=== PATIENT | female | born 1950 | race Caucasian/White ===

== ENCOUNTER → 2016-06-18 | Outpatient (CLI) | payer OTHER, BC ==
[~2016-06-18] MED LIST: ACET500C14; ASPI81TA28 PO; CARI350T27 PO; CLON0.5T3 PO; LISI5TAB PO; LORA10CA2 PO; MELO15TA4 PO; MELO7.5T5 PO; TAMO20TA47 PO; TRAM-10 PO; TRIATAB3 PO; VENL25TA2 PO
== END | disposition home or self-care (01) ==
LOC: C.LABSPEC 09:37
PROVIDERS: ATTEND Internal Medicine
DX: R19.4 Change in bowel habit (principal)

== ENCOUNTER → 2016-07-02 | Outpatient (CLI) | payer OTHER, BC ==
[~2016-07-02] MED LIST changes: -ACET500C14; -MELO7.5T5 PO; -VENL25TA2 PO
[2016-07-02 17:38] LABS: HEMATOCRIT 37.1 % (37-47); MEAN CORPUSCULAR HEMOGLOBIN 31.6 pg (25-34); PLATELET COUNT 259 K/uL (130-400); RED BLOOD COUNT 3.99 M/uL (4.2-5.4); WHITE BLOOD COUNT 7.93 K/uL (4.8-10.8)
[2016-07-02 18:12] LABS: ALT/SGPT 21 U/L (12-78); AST/SGOT 28 U/L (15-37); BLOOD UREA NITROGEN 26 mg/dl (7-18); CALCIUM 9.5 mg/dl (8.5-10.1); CARBON DIOXIDE 30 mmol/L (21-32); CHLORIDE 102 mmol/L (98-107); GLUCOSE 71 mg/dl (70-99); POTASSIUM 3.8 mmol/L (3.5-5.1); SODIUM 140 mmol/L (136-145)
[2016-07-02 18:15] LABS: ALB/GLOB RATIO 1.3 (0.9-2); ALKALINE PHOSPHATASE 46 U/L (45-117)
== END | disposition home or self-care (01) ==
LOC: C.LAB1850 16:04
PROVIDERS: ATTEND Obstetrics & Gynecology
DX: N95.0 Postmenopausal bleeding (principal)

== ENCOUNTER → 2016-07-05 | Day surgery (SDC) | payer OTHER, BC ==
[2016-06-26 08:49] VITALS: Ht 162.6 cm; Wt 59.1 kg
[~2016-07-05] VITALS: Ht 162.6 cm; Wt 59.1 kg
[~2016-07-05] MED LIST changes: +ARTIFICIAL TEARS OP OINT 3.5 GM TUBE ONE; +ATROPINE SULFATE 0.1 MG/ML 5ML SYR IV PRN; +DEXAMETHASONE SOD INJ 4 MG/ML VIAL ONE; +EpHEDrine SULFATE INJ 50 MG/ML AMP IV PRN; +FENTANYL CITRATE INJ 50 MCG/1 ML 2 ML VIAL IV PRN; +FENTANYL CITRATE INJ 50 MCG/1 ML 2 ML VIAL ONE; +IBUPROFEN 600 MG TAB PO PRN; +KETOROLAC TROMETHAMINE 30 MG/ML VIAL IV. PRN; +KETOROLAC TROMETHAMINE 30 MG/ML VIAL ONE; +LACTATED RINGER'S 1000ML 1,000 ML IV SCH; +LIDOCAINE HCL 2% 2 ML VIAL (20MG/ML) ONE; +MIDAZOLAM HCL 1 MG/ML 2ML VIAL ONE; +ONDANSETRON INJ 2 MG/ML 2 ML VIAL IV PRN; +ONDANSETRON INJ 2 MG/ML 2 ML VIAL ONE; +OXYCODONE/ACETAMINOPHEN 5-325 TAB PO PRN; +PROPOFOL IV EMULSION 10 MG/ML 20 ML VIAL IV ONE; +SODIUM CHLORIDE 0.9% 1000ML 1,000 ML IV SCH
--- NOTE | 2016-07-05 07:06 | History & Physical Bridge - SC ---
H&P Re-Evaluation Bridge Note: I have examined the patient, reviewed the History & Physical and in the interval since the performance of the History & Physical I have noted the following changes of clinical significance: No changes noted
--- NOTE | 2016-07-05 07:41 | [facility] Post Operative Brief Note ---
Immediate Operative Summary Operative Date Jul 05, 2016. Pre-Operative Diagnosis Post Menopausal Bleeding, Abnormal Pelvic Ultrasound, Use of tamoxifen Post-Operative Diagnosis 1. Same 2. Endometrial polyp Procedure(s) Performed Dilatation And Curettage, Hysteroscopy, Endometrial Polypectomy Surgeon Dr. Hull Trest[place] Surgeon(s) None Estimated Blood Loss 1 ML Findings uterus sounds to 7cm. nl ostia bilaterally. bland appearing cavity. ?small sessile polyp anteriorly after initial curettage. saline deficit 40cc. Fluids (cc crystalloids) 400 Specimens A. Endometrial Curettings Drains none Anesthesia general Complication(s) None Disposition Recovery Room / PACU
--- NOTE | 2016-07-05 07:42 | Discharge Instructions ---
Discharge Instructions Admission Reason for Admission: Post Menopausal Bleeding, Abnormal Pelvic Ultrasou Discharge Discharge Diagnosis / Problem: after surgery Discharge Goals Goal(s): Routine recovery after surgery Activity Recommendations Activity Limitations: as noted below . Instructions / Follow-Up Instructions / Follow-Up ACTIVITY RECOMMENDATIONS: * Avoid tampons, douching, hot tubs, pools, and intercourse until bleeding has stopped. * May shower as usual. * No strenuous activity for 24-48 hours. After 24-48 hours, you may do anything you feel like doing (driving and sports are okay). SPECIAL CARE INSTRUCTIONS: Special Diet: * Mild nausea may occur in the immediate post-operative period. * Take clear liquids such as tea, cola or bouillon until all nausea has subsided; you may then resume your normal diet. Special Care: * Light bleeding and vaginal spotting can last from a few days to 3-4 weeks. Call your doctor if bleeding becomes heavier than the heaviest part of your period. * Check your temperature twice a day for one week. If it goes above 100.4 degrees Fahrenheit (38.0 Celsius), notify your doctor. * Call your doctor's office for an appointment for 2 weeks after your surgery. FOLLOW-UP VISIT: Call your doctor's office for an appointment for 2 weeks after your surgery. Current Hospital Diet Patient's current hospital diet: Discharge Diet Recommended Diet: Regular Diet Procedures Procedures Performed: Dilatation And Curettage, Hysteroscopy, Endometrial Polypectomy Pending Studies Studies pending at discharge: yes List of pending studies: pathology of tissue Medical Emergencies . Who to Call and When: Medical Emergencies: If at any time you feel your situation is an emergency, please call 911 immediately. . Non-Emergent Contact Non-Emergency issues call your: Primary Care Provider, Printing Grey Cloth Tender Call Non-Emergent contact if: you have a fever . . "Provider Documentation" section prepared by Georgina Hull. VTE Core Measure Inpt VTE Proph given/why not?: Treatment not indicated
--- NOTE | 2016-07-05 07:56 | OPERATIVE REPORT ---
DATE OF OPERATION: 07/05/2016 PREOPERATIVE DIAGNOSES: 1. Postmenopausal bleeding. 2. Use of tamoxifen. 3. Abnormal pelvic ultrasound. POSTOPERATIVE DIAGNOSIS: 1. Same. 2. Small endometrial polyp. PROCEDURES: 1. Dilatation and curettage. 2. Hysteroscopy. 3. Endometrial polypectomy. SURGEON: Dr. Georgina Hull. INTERNET CONSULTANT: None. IV FLUIDS: 400 mL. ESTIMATED BLOOD LOSS: 1 mL. ANESTHESIA: General. FINDINGS: Uterine cavity quite bland appearing. Sounds to 8 cm. Normal tubal ostia bilaterally. After initial curettage small anterior more flat polyp suspected and resected. All tissue sent. Saline hysteroscopic fluid deficit 40 mL. INDICATIONS: A 66-year-old with an episode of postmenopausal bleeding and possible endometrial polyp on saline ultrasound. Office biopsy did not show any cancer or precancer. She does take tamoxifen for history of breast cancer. She desired surgical management. OPERATION AND FINDINGS: PROCEDURE: The patient taken the operating room and identified. After adequate general anesthesia was obtained, she was placed in dorsal lithotomy position and prepped and draped in usual sterile fashion. The bladder was drained for clear yellow urine. A weighted speculum and anterior retractor were used to visualize the cervix which was grasped its anterior lip with an Allis clamp. The cervix was sequentially dilated using Hegar dilators to 19. The diagnostic hysteroscope primed with saline medium was gently placed through the cervical os into the uterine cavity. The cavity was inspected with the findings as noted above. The uterus was sounded to 7 cm. The serrated curette was used to curettage the uterus to a gritty consistency. With reintroduction of the camera there was a suspicion for an anterior flat type of polyp. For this reason the polyp forceps was used to further biopsy that area and specimen. Complete removal was confirmed with the camera. At this point the procedure was terminated. The Allis clamp was removed. The hysteroscope was then removed. All the retractors were removed. The patient was returned to the supine position. She was awoken from anesthesia and transferred to recovery room in stable condition. All sponge, lap and needle counts were correct x2. I attest to the content of the Intraoperative Record and any orders documented therein. Any exceptions are noted below. NIRANJAN
[2016-07-05 08:20] VITALS: TEMP 37
--- NOTE | 2016-07-05 08:49 | Anesthesia Progress Nt - [facility] ---
Anesthesia Post Op Note Date & Time Jul 05, 2016 at 08:49 Vital Signs Pain Intensity: 1 Vital Signs Past 12 Hours Date Time Temp Pulse Resp B/P Pulse Ox O2 Delivery O2 Flow Rate FiO2 07/05/16 08:20 37.0 84 14 105/57 95 Room Air 07/05/16 08:09 83 17 96 07/05/16 08:09 36.4 82 17 07/05/16 08:08 119/75 07/05/16 08:04 75 15 07/05/16 08:04 75 15 98 07/05/16 08:03 118/78 07/05/16 07:59 75 16 07/05/16 07:59 75 16 100 07/05/16 07:58 112/69 07/05/16 07:54 80 17 100 07/05/16 07:54 79 17 07/05/16 07:53 111/63 07/05/16 07:49 83 24 07/05/16 07:49 82 24 112/64 99 07/05/16 07:45 37 86 16 112/77 95 Mask 6 07/05/16 07:44 85 07/05/16 07:44 85 112/77 98 07/05/16 07:04 90 126/86 07/05/16 06:31 36.9 101 16 99/63 96 Room Air Notes Mental Status: alert / awake / arousable, participated in evaluation Pt Amnestic to Procedure: Yes Nausea / Vomiting: adequately controlled Pain: adequately controlled Airway Patency, RR, SpO2: stable & adequate BP & HR: stable & adequate Hydration State: stable & adequate Anesthetic Complications: no major complications apparent
[2016-07-05 09:00] VITALS: BP 104/72; PULSE 84; O2SAT 96
== END | disposition home or self-care (01) ==
LOC: X.SURG 06:09
PROVIDERS: ATTEND Obstetrics & Gynecology
DX: N84.0 Polyp of corpus uteri (principal); N95.0 Postmenopausal bleeding; C50.919 Malignant neoplasm of unspecified site of unspecified female breast; K61.1 Rectal abscess; Z79.810 Long term (current) use of selective estrogen receptor modulators (SERMs); M19.90 Unspecified osteoarthritis, unspecified site; E78.5 Hyperlipidemia, unspecified; I10 Essential (primary) hypertension; Z98.890 Other specified postprocedural states

== ENCOUNTER → 2017-03-21 | Outpatient (CLI) | payer OTHER, BC ==
[~2017-03-21] MED LIST changes: -ARTIFICIAL TEARS OP OINT 3.5 GM TUBE ONE; -ATROPINE SULFATE 0.1 MG/ML 5ML SYR IV PRN; -DEXAMETHASONE SOD INJ 4 MG/ML VIAL ONE; -EpHEDrine SULFATE INJ 50 MG/ML AMP IV PRN; -FENTANYL CITRATE INJ 50 MCG/1 ML 2 ML VIAL IV PRN; -FENTANYL CITRATE INJ 50 MCG/1 ML 2 ML VIAL ONE; -IBUPROFEN 600 MG TAB PO PRN; -KETOROLAC TROMETHAMINE 30 MG/ML VIAL IV. PRN; -KETOROLAC TROMETHAMINE 30 MG/ML VIAL ONE; -LACTATED RINGER'S 1000ML 1,000 ML IV SCH; -LIDOCAINE HCL 2% 2 ML VIAL (20MG/ML) ONE; -MIDAZOLAM HCL 1 MG/ML 2ML VIAL ONE; -ONDANSETRON INJ 2 MG/ML 2 ML VIAL IV PRN; -ONDANSETRON INJ 2 MG/ML 2 ML VIAL ONE; -OXYCODONE/ACETAMINOPHEN 5-325 TAB PO PRN; -PROPOFOL IV EMULSION 10 MG/ML 20 ML VIAL IV ONE; +Potassium PO; -SODIUM CHLORIDE 0.9% 1000ML 1,000 ML IV SCH; -TAMO20TA47 PO; +TAMO20TA9 PO
[2017-03-21 13:16] VITALS: BP 99/58; PULSE 97; TEMP 36.9; O2SAT 96
--- NOTE | 2017-03-21 15:12 | Radiation Oncology Follow-Up ---
Radiation Oncology Follow-Up Date of Visit Mar 21, 2017. Reason For Visit Annual follow-up Radiation Completion Date 07/30/12 Diagnosis (1) MAL JOY BREAST UP-OUTER Status: Resolved Onset Date: 03/19/2012 Location: left breast Histology Subtype: ductal Stage: l Permanent Comment: Abnormal left breast mammogram Status post biopsy 03/19/2012 revealing invasive ductal carcinoma Status post lumpectomy and sentinel lymph node biopsy 04/29/2012 Stage [id number] Oncotype DX score of 16 status post completion of radiation therapy 07/30/2012 received 6080 cGy Last Edited By: Taylor Irizarry on Mar 09, 2015 15:57 History of Present Illness Mrs. Juarez is a 65-year-old now retired employee of [employer] who presented with abnormal mammogram in February of 2012. The patient had an ultrasound and diagnostic mammogram of the left breast which showed a 6 mm irregular density over the left upper outer quadrant. A biopsy of the breast on 03/19/2012 confirmed a grade 1 infiltrating ductal carcinoma of the left breast ER/VT positive with no lymphovascular invasion and ER/VT strongly positive. There was a concern about the HER-2/gali stain, but I do see a report on the chart with FISH reported as negative. An OncoDX test is ordered by Dr. Hull. The Oncotype DX score was 16. She return to our office to undergo radiation therapy. Interim History She's been doing well over this past year. She denies any changes to her breast. She is noted no masses or tenderness and no change in the axilla. She' s had no swelling of her arm. She is up-to-date on mammography. She is on tamoxifen. She had an episode of some mild spotting. She was seen by gynecology and had a D&C, hysteroscopy, and removal of polyps. She has not had any further spotting since the procedure. She continues on tamoxifen. She does have side effects of hot flashes and night sweats. She has significant osteoarthritis. She is on Mobic and this greatly helps her joint discomforts. She does notice some increased redness to the skin of the left upper breast and shoulder after showering. This resolves soon after she is back down. Allergies Coded Allergies: Meperidine (Verified Allergy, Unknown, COLD/CLAMMY AFTER IM INJECTION, ) Home Medications Scheduled Aspirin (Aspirin Ec), 81 MG PO HS Clonazepam (Klonopin), 0.5 MG PO HS Lisinopril (Prinivil), 5 MG PO HS Loratadine (Claritin), 10 MG PO QAM Meloxicam (Mobic), 15 MG PO QAM Tamoxifen (Nolvadex), 20 MG PO QAM Triamterene/Hctz (Triamterene/Hctz 37.5-25MG), 1 TAB PO QAM [Potassium], 99 MG PO DAILY Scheduled PRN Carisoprodol (Soma), 350 MG PO HS PRN Tramadol (Ultram), 50 MG PO Q4H PRN for Pain Review of Systems Gastrointestinal: Symptoms: WNL Oral: Symptoms: No Problems Respiratory: Symptoms: WNL Urinary: Symptoms: WNL Skin: Symptoms: No Problems Other Skin Symptoms: Patient reports slightly reddened at tx site and itchy at site Breast: Right Upper Arm Measurement: 25.9 Right Mid Arm Measurement: 20.1 Right Wrist Measurement: 15.1 Left Upper Arm Measurement: 25.7 Left Mid Arm Measurement: 19.3 Left Wrist Measurement: 15.5 Physical Exam Vital Signs Date Time Temp Pulse Resp B/P (MAP) Pulse Ox O2 Delivery O2 Flow Rate FiO2 03/21/17 13:16 36.9 97 16 99/58 96 Fatigue: None General Appearance: no apparent distress Eyes: normal inspection, EOMI ENT: normal ENT inspection, hearing grossly normal Neck: supple, no adenopathy, thyroid normal Respiratory/Chest: lungs clear, no respiratory distress, no accessory muscle use Breast: Breast examination reveals well-healed incisions of the left breast. There are no masses or tenderness and no axillary adenopathy. She has no skin retractions or nipple changes. Using the [place] score cosmesis she has a excellent outcome. The right breast showed no masses or tenderness no axillary adenopathy. Cardiovascular: regular rate, rhythm, no gallop, no murmur Abdomen: non tender, soft, no organomegaly Extremities: no pedal edema, + pertinent finding (joint nodules noted of the hands) Neurologic/Psychiatric: no motor/sensory deficits, alert, normal mood/affect Skin: warm/dry Additional Studies Patient: TIMOTHY JUAREZ [facility] Rec: [id number] Address[address]: [address] Address2: Acct ID: [id number] Date: 1950 Sex: F Ref Phy: Att Phy: Kendra Carmichael M.D. Rachel Phy: Prem Hull M.D. Inter Phy: Nubia Chavarria MD [facility] Zip: [place] [address] SC: [email or web address] Report #: [id number] Knowledge Manager: STEWST Diagnosis: ASYMPTOMATIC, HX BREAST CA Service Date: 03/30/16 MNE: [id number] Ordering Dr: Kendra Carmichael M.D. CC: Kendra Carmichael M.D. CONF: DICTATED BY: Nubia Chavarria MD MAMMOGRAPHY REPORT BILATERAL DIGITAL SCREENING MAMMOGRAM TOMOSYNTHESIS WITH CAD: 03/30/2016 CLINICAL HISTORY: Routine screening. Patient has no complaints. Comparison is made to exams dated: 03/28/2015 mammogram, 03/23/2013 mammogram, 03/25/2014 mammogram, 04/29/2012 specimen, 03/01/2011 mammogram, and 02/28/2010 mammogram - [facility]. FINDINGS: Breast composition: The tissue of both breasts is heterogeneously dense, which may obscure small masses. Breast tomosynthesis, in addition to standard 2D mammography was performed. Current study was also evaluated with a Computer Aided Detection (CAD) system. There is expected architectural distortion with associated surgical clips and coarse dystrophic calcifications in the upper outer posterior left breast, at the site of prior lumpectomy. No new suspicious mass, architectural distortion or cluster of microcalcifications is seen bilaterally. IMPRESSION: ACR BI-RADS CATEGORY 2: BENIGN Stable bilateral mammograms, without mammographic evidence of malignancy. A 1 year screening mammogram is recommended. The patient will receive written notification of the results. Approximately 10% of breast cancers are not detected with mammography. A negative mammographic report should not delay biopsy if a clinically suggestive mass is present. Nubia Chavarria M.D. ay/:03/30/2016 14:56:47 Neurosurgery Physician: Angie RAYA)(Nelsy), [facility] letter sent: Normal 1/2 BI-RADS Code: ACR BI-RADS Category 2: Benign Dictated by: Nubia Chavarria MD Signed by: Nubia Chavarria MD Assessment & Plan Plan: She has a recheck mammogram scheduled for 04/01/2017. She continues on tamoxifen. Continue follow-up with her primary care provider and medical oncologist. Today we discussed smoke cessation. She continues to smoke less than one pack per day. She stated that she would like to try 10 text but this was not recommended while on tamoxifen. She will be completing her tamoxifen in July. I gave her information about the 1 800 quit program. She may qualify for the screening CTs for smokers. She agreed to have her name given to our talent program manager. I will have her discussed this with Dr. Estrada. A follow-up appointment with our office was not given. She may call if she has any questions or concerns in the interim. She'll continue follow-up with gynecology. I did suggest discussing recheck ultrasounds due to the recent finding of uterine polyps. She will discuss that with the outside plant cable engineer. Total Time In Follow-Up I spent 20 minutes speaking to the patient performing examination. I spent 15 minutes reviewing information in completing this note. Copy To Juan Clarke M.D.; Prem Hull M.D.
== END | disposition home or self-care (01) ==
LOC: C.ONC 13:04
PROVIDERS: ATTEND Physician Assistant Medical
DX: Z08 Encounter for follow-up examination after completed treatment for malignant neoplasm (principal); Z92.3 Personal history of irradiation; Z85.3 Personal history of malignant neoplasm of breast

== ENCOUNTER → 2017-04-01 | Outpatient (CLI) | payer OTHER, BC ==
[~2017-04-01] MED LIST changes: +TAMO20TA47 PO; -TAMO20TA9 PO
--- NOTE | 2017-04-02 15:17 | MAMMOGRAPHY REPORT ---
BILATERAL DIGITAL SCREENING MAMMOGRAM TOMOSYNTHESIS WITH CAD: 04/01/2017 CLINICAL HISTORY: Asymptomatic. Personal history of breast cancer. TECHNIQUE: Breast tomosynthesis in addition to standard 2D mammography was performed. Current study was also evaluated with a Computer Aided Detection (CAD) system. COMPARISON: Comparison is made to exams dated: 03/30/2016 mammogram, 03/28/2015 mammogram, 4 mammogram, 03/23/2013 mammogram, 10/27/2012 mammogram, and 03/03/2012 mammogram - [facility]. BREAST COMPOSITION: The tissue of both breasts is heterogeneously dense, which may obscure small mas ses. FINDINGS: There is expected architectural distortion with benign appearing calcification and surgical clips in the upper outer posterior left breast, at the site of prior lumpectomy. Stable asymmetry i n the medial posterior right breast. No new suspicious mass, architectural distortion or cluster of microcalcifications is seen. IMPRESSION: ACR BI-RADS CATEGORY 1: NEGATIVE There is no mammographic evidence of malignancy. A 1 year screening mammogram is recommended. The pa tient will receive written notification of the results. Approximately 10% of breast cancers are not detected with mammography. A negative mammographic report should not delay biopsy if a clinically suggestive mass is present. Nubia Chavarria M.D. ay/:04/01/2017 16:54:26 Grey Stock Recorder: Rc COPELAND(R)(M), [facility] letter sent: Normal 1/2 BI-RADS Code: ACR BI-RADS Category 1: Negative
== END | disposition home or self-care (01) ==
LOC: C.MAMM 09:19
PROVIDERS: ATTEND Obstetrics & Gynecology
DX: Z12.31 Encounter for screening mammogram for malignant neoplasm of breast (principal); Z85.3 Personal history of malignant neoplasm of breast

== ENCOUNTER → 2017-04-19 | Outpatient (CLI) | payer OTHER, BC ==
[~2017-04-19] MED LIST changes: -TAMO20TA47 PO; +TAMO20TA9 PO
--- NOTE | 2017-04-19 09:52 | DIAGNOSTIC IMAGING REPORT ---
CT LUNG SCREENING, LOW DOSE WITH COMPUTER-AIDED DETECTION (CAD) CLINICAL HISTORY: Smoking history. COMPARISON STUDY: No previous studies for comparison. CT DOSE: 73.66 mGycm TECHNIQUE: Low-dose helical CT was acquired without intravenous contrast from lung apices to bases and reconstructed at 2.5 mm every 2 mm. CAD was utilized for this study. A dose lowering technique was utilized adhering to the principles of ALARA. FINDINGS: Mild biapical pleural-parenchymal scarring. The central airways are patent. No pleural effusions. No pneumothorax. Mild emphysema. No suspicious lytic or blastic osseous lesions. No mediastinal or hilar lymphadenopathy. Mild calcification within the coronary arteries and thoracic aorta. The heart is normal in size. The visualized liver, spleen, and adrenal glands are unremarkable. Surgical clips within the left breast. Small fat-containing left-sided Bochdalek hernia. IMPRESSION: No suspicious pulmonary nodules identified. Mild coronary artery calcifications. CAD FINDINGS: Overall Lung RADS Category: 1 Lung RADS Management Recommendation: Continue annual lung cancer screening. Lung RADS Follow Up Date: 2018-04-19 Lung RADS Nodule ID: Electronically signed by: Marcello Mcdonald M.D. 04/19/2017 9:50 AM Dictated Date/Time: 04/19/2017 9:43 AM
== END | disposition home or self-care (01) ==
LOC: C.CTS 09:22
PROVIDERS: ATTEND Internal Medicine
DX: Z87.891 Personal history of nicotine dependence (principal)

== ENCOUNTER → 2017-07-04 | Outpatient (CLI) | payer OTHER, BC ==
[2017-07-04 15:32] LABS: FECAL OCCULT BLOOD #1 NEGATIVE (NEGATIVE); FECAL OCCULT BLOOD #2 NEGATIVE (NEGATIVE); FECAL OCCULT BLOOD #3 NEGATIVE (NEGATIVE)
== END | disposition home or self-care (01) ==
LOC: C.LABSPEC 14:53
PROVIDERS: ATTEND Internal Medicine
DX: Z12.11 Encounter for screening for malignant neoplasm of colon (principal)

== ENCOUNTER → 2017-07-05 | Outpatient (CLI) | payer OTHER, BC ==
[2017-07-05 10:09] LABS: BASO % 0.3 %; BASO ABS # 0.03 K/uL (0-0.2); EOS % 3.7 %; EOS ABS # 0.32 K/uL (0-0.5); HEMATOCRIT 40.3 % (37-47); HEMOGLOBIN 13.6 g/dL (12.0-16.0); IG# 0.02 K/uL (0.00-0.02); LYMPH % 26.8 %; LYMPH ABS # 2.32 K/uL (1.2-3.4); MEAN CELL VOLUME 95.3 fL (80-100); MEAN CORPUSCULAR HEMOGLOBIN 32.2 pg (25-34); MEAN CORPUSCULAR HGB CONC 33.7 g/dl (32-36); MEAN PLATELET VOLUME 9.9 fL (7.4-10.4); MONO % 3.3 %; MONO ABS # 0.29 K/uL (0.11-0.59); NEUT % 65.7 %; NEUT ABS # 5.68 K/uL (1.4-6.5); PLATELET COUNT 297 K/uL (130-400); RED CELL DISTRIBUTION WIDTH CV 13.9 % (11.5-14.5); RED CELL DISTRIBUTION WIDTH SD 48.9 fL (36.4-46.3); WHITE BLOOD COUNT 8.66 K/uL (4.8-10.8)
[2017-07-05 10:21] LABS: ALBUMIN 3.8 gm/dl (3.4-5.0); ALT/SGPT 19 U/L (12-78); AST/SGOT 26 U/L (15-37); BLOOD UREA NITROGEN 22 mg/dl (7-18); CALCIUM 9.9 mg/dl (8.5-10.1); CARBON DIOXIDE 27 mmol/L (21-32); CHOLESTEROL 210 mg/dl (0-200); CREATININE 1.09 mg/dl (0.60-1.20); GLUCOSE 92 mg/dl (70-99); POTASSIUM 4.3 mmol/L (3.5-5.1); SODIUM 137 mmol/L (136-145)
[2017-07-05 10:25] LABS: ALKALINE PHOSPHATASE 56 U/L (45-117); LDL CHOLESTEROL (DIRECT) 138 mg/dl; TOTAL PROTEIN 7.1 gm/dl (6.4-8.2)
== END | disposition home or self-care (01) ==
LOC: C.LAB 07:17
PROVIDERS: ATTEND Internal Medicine
DX: Z00.01 Encounter for general adult medical examination with abnormal findings (principal); Z11.4 Encounter for screening for human immunodeficiency virus [HIV]; I10 Essential (primary) hypertension; E78.5 Hyperlipidemia, unspecified; M85.80 Other specified disorders of bone density and structure, unspecified site

== ENCOUNTER 2019-03-25 05:25 | Inpatient (IN) ==
--- NOTE | 2019-02-24 09:50 | PAT Medication Instructions ---
Medication Instructions Date of Service February 24, 2019 Home Medications aspirin [Aspir-81] 81 mg PO QPM atorvastatin [Lipitor] 10 mg PO QAM bupropion HCl [Wellbutrin SR] 150 mg PO BID cholecalciferol (vitamin D3) [Vitamin D3] 5,000 unit PO DAILY clonazepam 0.5 mg PO QPM lisinopril 5 mg PO QPM loratadine [Claritin] 10 mg PO QAM meloxicam 15 mg PO QAM potassium 99 mg PO BID triamterene-hydrochlorothiazid 1 tab PO QAM ASK your surgeon for instructions meloxicam 15 mg PO QAM DO NOT take the morning of surgery loratadine [Claritin] 10 mg PO QAM potassium 99 mg PO BID triamterene-hydrochlorothiazid 1 tab PO QAM Take morning of surgery With a small sip of water, OTHERWISE NOTHING TO EAT OR DRINK AFTER MIDNIGHT: atorvastatin [Lipitor] 10 mg PO QAM bupropion HCl [Wellbutrin SR] 150 mg PO BID Take evening before surgery aspirin [Aspir-81] 81 mg PO QPM bupropion HCl [Wellbutrin SR] 150 mg PO BID clonazepam 0.5 mg PO QPM lisinopril 5 mg PO QPM potassium 99 mg PO BID Other Notes If you have any questions please call us at [phone] or [phone] or [phone] or [phone]
--- NOTE | 2019-02-24 12:43 | Anesthesiology Consultation ---
Date of Service February 24, 2019 Assessment & Plan (1) Encounter for pre-operative examination: - Awaiting review preop testing. - Awaiting surgeon-ordered PCP clearance scheduled 02/24 (Dr. Antonietta Melo). - LUE limb restriction: s/p left breast lumpectomy + LND - ASA: okay to continue perioperatively per surgeon. - Hx scoliosis, L4-L5 discectomy: patient concerned RE: SAB. Discussed that anesthesia would do best to attempt spinal block with least attempts as possible. If issues with SAB, GA would be alternative type of anesthesia. Patient voiced understanding. Chart Review Chart Review: Patient seen in Pre Admission Testing Teaching & Discussion Pre-Anesthesia Teaching/Discussion Notes: Instructed NPO after midnight before surgery,except medications with 15 cc of water. Medication instructions provided according to the PAT guidelines. History Surgery Operation Date: 03/25/19 12:40 Proposed Procedures p Right Total Knee Arthroplasty - Farrukh Shaffer MD Height/Weight Height: 5 ft 2 in Weight: 57.6 kg Allergies Allergy/AdvReac Type Severity Reaction Status Date / Time meperidine AdvReac Unknown cold/clammy Verified 02/24/19 12:50 feeting after IM injection Medications Home Medications Medication Instructions Recorded Confirmed Last Taken aspirin [Aspir-81] 81 mg PO QPM 02/19/19 02/19/19 02/18/19 atorvastatin [Lipitor] 10 mg PO QAM 02/19/19 02/19/19 02/19/19 bupropion HCl [Wellbutrin SR] 150 mg PO BID 02/19/19 02/19/19 02/19/19 cholecalciferol (vitamin D3) 5,000 unit PO DAILY 02/19/19 02/19/19 Unknown [Vitamin D3] clonazepam 0.5 mg PO QPM 02/19/19 02/19/19 Unknown lisinopril 5 mg PO QPM 02/19/19 02/19/19 02/18/19 loratadine [Claritin] 10 mg PO QAM 02/19/19 02/19/19 02/19/19 meloxicam 15 mg PO QAM 02/19/19 02/19/19 02/19/19 potassium 99 mg PO BID 02/19/19 02/19/19 02/19/19 triamterene-hydrochlorothiazid 1 tab PO QAM 02/19/19 02/19/19 02/19/19 Past Medical History Medical History Degenerative disc disease History of depression History of left breast cancer s/p left breast lumpectomy + LND/XRT Hyperlipidemia Hypertension IBS (irritable bowel syndrome) diet controlled Restless leg syndrome Sciatica Scoliosis Exercise / Class Metabolic Activity II 4-5 Yardwork/Stairs/Walk up hill Past Surgical History Surgical History History of appendectomy History of colonoscopy History of dilation and curettage History of lumbar discectomy X2 History of lumpectomy of left breast + AXILLARY LND History of repair of rotator cuff ARTHROSCOPY - R X2, L X 1 History of surgery FOR RECTAL ABCESS History of wisdom tooth extraction Hx of laparoscopy LAPAROSCOPIC RIGHT SALPINGECTOMY Past Anesthesia History No Hx of Anesthesia Complications and No Family Hx of Anesthesia Complications History of PONV No Hx of PONV and No Hx of Motion Sickness Social History Smoking Status: Former smoker tobacco type: cigarettes Do You Dip or Chew Tobacco: No Smoking End Date: QUIT JAN 2019; HX < 1PPD X 30 INTERMITTENT YEARS Hx Alcohol Use: Yes alcohol intake frequency: other Alcohol Intake Frequency Comment: ONCE/MONTH Hx Substance Use: No substance use type: does not use Review of Systems Patient denies chest pain, shortness of breath, dyspnea on exertion, reflux, cough, wheezing, palpitations. Physical Exam Vital Signs VITALS BP 110/72 P 80 TEMP 98.1 SP02 95%RA RESP 16 PHYSICAL Full neck and c-spine range of motion. Full TMJ range of motion. 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
--- NOTE | 2019-02-24 14:23 | XRay Report ---
XR chest Pre-admission PA/Lat CLINICAL HISTORY: Preoperative evaluation. COMPARISON STUDY: Chest CT April 29, 2018. FINDINGS: Lung volumes are normal. There is no pneumothorax or pleural effusion. There is mild right asymmetric apical opacity. Cardiac size is normal. Mediastinal contours are normal. Left breast surgi antwan clips are noted. IMPRESSION: Mild asymmetric right apical opacity. This is likely due to summation artifact or scarri ng. However, a follow-up chest CT is recommended to exclude a pulmonary nodule. Electronically signed by: Jim Daniels M.D. 02/24/2019 2:21 PM
[2019-02-24 14:47] LABS: Basophils # (auto) 0.01 K/uL (0-0.2); Basophils % (auto) 0.2 %; Eosinophils # (auto) 0.17 K/uL (0-0.5); Eosinophils % (auto) 2.6 %; Hematocrit (blood only) 35.6 % (37-47); Hemoglobin 12.4 g/dL (12.0-16.0); Immature Granulocytes # (auto) 0.02 K/uL (0.00-0.02); Immature Granulocytes % (auto) 0.3 %; Lymphocytes # (auto) 1.85 K/uL (1.2-3.4); Mean Corpuscular Hemoglobin 30.9 pg (25-34); Mean Corpuscular Hgb Conc 34.8 g/dL (32-36); Mean Corpuscular Volume 88.8 fL (80-100); Mean Platelet Volume 9.3 fL (7.4-10.4); Monocytes # (auto) 0.33 K/uL (0.11-0.59); Neutrophils # (auto) 4.23 K/uL (1.4-6.5); Neutrophils % (auto) 63.9 %; Platelet Count 303 K/uL (130-400); RDW Coefficient of Variation 13.2 % (11.5-14.5); RDW Standard Deviation 42.8 fL (36.4-46.3); Red Blood Count 4.01 M/uL (4.2-5.4); White Blood Count 6.61 K/uL (4.8-10.8)
[2019-02-24 14:55] LABS: Appearance Urine Clear (Clear); Bacteria Urine Automated Negative (Negative); Bilirubin Urine Negative (Negative); Blood Urine Negative (Negative); Cast Urine Automated 0 /lpf (0-5); Color Urine Yellow; Epithelial Cell Urine Auto 20-30 /lpf (0-5); Glucose Urine UA Negative (Negative); Ketones Urine Negative (Negative); Leukocyte Esterase Urine 2+ (Negative); Nitrite Urine Negative (Negative); Protein Urine Negative (Negative); RBC Urine Automated 0-4 /hpf (0-4); Specific Gravity Urine 1.017 (1.000-1.030); Urobilinogen Urine Negative (Negative); pH Urine 6.5 (4.5-7.5)
[2019-02-24 14:59] LABS: Albumin Level 3.9 gm/dl (3.4-5.0); BUN Creatinine Ratio 14.5 (10-20); Calcium 10.2 mg/dl (8.5-10.1); Creatinine Clr Calc Pharmacy 28.6 ml/min; Est GFR (African American) 40.7; Est GFR (Non-African American) 35.1
[2019-02-24 15:01] LABS: Partial Thromboplastin Time 26.4 Seconds (21.0-31.0); Prothrombin Time 9.8 Seconds (9.0-12.0)
[2019-02-25 05:51] LABS: Estimated Average Glucose 114 mg/dl; Hemoglobin A1C 5.6 % (4.5-5.6)
--- NOTE | 2019-03-24 20:52 | History and Physical Report ---
DATE OF ADMISSION: 03/25/2019 CHIEF COMPLAINT: Chronic right knee pain. HISTORY OF PRESENT ILLNESS: This is a 68-year-old female patient of Dr. Shaffer'hilda complaining of chronic right knee pain, longstanding, now progressively getting worse. The patient has failed conservative treatment including intra-articular injections, anti-inflammatories and physical therapy. The patient has increased pain with weightbearing activities and her pain does interfere with her activities of daily living. The patient has been diagnosed with end-stage osteoarthritis per clinical and radiographic exams and wishes to proceed with a right total knee arthroplasty. PAST MEDICAL HISTORY: Hypertension, hypercholesterolemia, anxiety, osteoarthritis, spine problems, neck problems, sciatica, breast cancer. SOCIAL HISTORY: Nonsmoker, nondrinker. PAST SURGICAL HISTORY: Appendectomy, oophorectomy, lumbar spine surgery, left breast lumpectomy with axilla node removal, right rotator cuff surgery x2 and left shoulder surgery and D and C. FAMILY HISTORY: Noncontributory. REVIEW OF SYSTEMS: Right knee chronic pain. Otherwise, denies any shortness of breath, chest pain, nausea, vomiting or any other joint complaints. MEDICATIONS: 1. Prinivil 5 mg daily. 2. Claritin 10 mg daily. 3. Tramadol 50 mg as needed. 4. Mobic 15 mg daily. 5. Triamterene/hydrochlorothiazide 37.5/25 daily. 6. Potassium 99 mg 2 tablets daily. 7. Vitamin D3 daily. 8. Aspirin 81 mg daily. 9. Clonazepam 0.5 mg 2 tablets as needed daily. 10. Soma 350 daily as needed. 11. Atorvastatin 10 mg daily. 12. Wellbutrin 150 twice daily. ALLERGIES: DEMEROL WHICH CAUSES DIZZINESS. PHYSICAL EXAMINATION: GENERAL: Well-developed, well-nourished 68-year-old female in no acute distress. She is alert and oriented x3 and pleasant. HEENT: Normocephalic, atraumatic. Extraocular motions are intact. Pupils are equal and reactive to light. HEART: Regular rate and rhythm, no murmurs appreciated. LUNGS: Clear. ABDOMEN: Soft, nontender, bowel sounds present. EXTREMITIES: Right knee range of motion of 0-125 with an effusion. She has a varus deformity with medial joint line tenderness. She has 5/5 strength. NEUROLOGIC: Neurovascularly, she is intact in her right lower extremity. DIAGNOSES: Right knee end-stage osteoarthritis, hypertension, hypercholesterolemia, anxiety, osteoarthritis, spine problems, neck problems, sciatica, history of breast cancer. PLAN: The patient was advised of her diagnoses. Indications, risks, benefits, postop course have all been reviewed. The patient wished to proceed with a right total knee arthroplasty. Necessary consent forms, preoperative testing and clearances will be obtained.
[2019-03-25] MEDS ORDERED: ACETAMINOPHEN 500 MG TAB PO SCH (06:00)
[2019-03-25] MEDS ORDERED: CeleBREX 200 MG CAP PO SCH (06:00)
[2019-03-25] MEDS ORDERED: GABAPENTIN 300 MG CAP PO SCH (06:00)
[2019-03-25] MEDS ORDERED: FAMOTIDINE 20 MG TAB PO SCH (06:00)
[2019-03-25] MEDS ORDERED: CEFAZOLIN 1000MG 1,000 MG/7.5 ML SYR IV SCH (06:00)
[2019-03-25] MEDS ORDERED: dexAMETHasone 4 MG TAB PO SCH (06:00)
[2019-03-25] MEDS ORDERED: TRANEXAMIC ACID 1,000 MG **IV Pre-op IV SCH (06:00)
[2019-03-25] MEDS ORDERED: METOCLOPRAMIDE HCL 10 MG TABLET PO SCH (06:00)
[2019-03-25] MEDS ORDERED: ROPIVACAINE 0.5% HCL/PF 150 MG, BUPIVACAINE 0.5% MPF 30 ML, EPINEPHrine 30MG/30ML (OR U... INSTIL SCH (06:00)
[2019-03-25] MEDS ORDERED: DEXAMETHASONE SOD INJ 4 MG/ML VIAL ONE (06:25)
[2019-03-25] MEDS ORDERED: BUPIVACAINE/EPINEPHRINE 0.25% 1:200,000 30 ML VIAL ONE (06:25)
[2019-03-25] MEDS ORDERED: BUPIVACAINE 0.5 % 5 MG/1 ML PF 10ML VIAL ONE (06:25)
[2019-03-25] MEDS ORDERED: MIDAZOLAM HCL 1 MG/ML 2ML VIAL ONE ×2 (06:29)
[2019-03-25] MEDS ORDERED: TRANEXAMIC ACID 1,000 MG **IV Intra-op IV SCH (06:30)
[2019-03-25] MEDS ORDERED: fentaNYL citrate 100 MCG/2 ML VIAL ONE (06:30)
[2019-03-25] MEDS ORDERED: BACITRACIN INJ 50,000 UNIT VIAL ONE (06:58)
[2019-03-25] MEDS ORDERED: ORTHO JOINT ANESTHETIC ONE (06:58)
[2019-03-25] MEDS ORDERED: ONDANSETRON INJ 2 MG/ML 2 ML VIAL IV PRN ×2 (07:09→10:42)
[2019-03-25] MEDS ORDERED: ATROPINE SULFATE 0.1 MG/ML 10ML SYR IV PRN (07:09)
[2019-03-25] MEDS ORDERED: fentaNYL citrate 100 MCG/2 ML VIAL IV PRN (07:09)
[2019-03-25] MEDS ORDERED: ePHEDrine sulfate 50 MG/ML AMP IV PRN (07:09)
--- NOTE | 2019-03-25 07:27 | History & Physical Bridge Note ---
Date of Service March 25, 2019 History & Physical Bridge Note I have examined the patient, reviewed the History & Physical and in the interval since the performance of the History & Physical I have noted the following changes of clinical significance: no changes noted
[2019-03-25 07:42] LABS: BUN Creatinine Ratio 22.1 (10-20); Calcium 10.3 mg/dl (8.5-10.1); Creatinine Clr Calc Pharmacy 37.7 ml/min; Est GFR (African American) 56.8; Potassium 3.8 mmol/L (3.5-5.1)
[2019-03-25] MEDS ORDERED: ONDANSETRON INJ 2 MG/ML 2 ML VIAL ONE (08:09)
[2019-03-25] MEDS ORDERED: PROPOFOL IV EMULSION 10 MG/ML 20 ML VIAL IV ONE (08:09)
[2019-03-25] MEDS ORDERED: LIDOCAINE HCL 2% 2 ML VIAL/AMP(20MG/ML) INFIL ONE (08:09)
--- NOTE | 2019-03-25 09:40 | Post Operative Brief Note ---
Immediate Post Op Note v1 Date of Surgery March 25, 2019 Pre & Post Diagnosis Operation Date: 03/25/19 07:30 Pre-Op Diagnosis: Right Knee End-Stage Osteoarthritis Post-Op Diagnosis: Right Knee End-Stage Osteoarthritis I identified the patient and participated in the time-out.: Yes Procedure Operation Date: 03/25/19 07:30 Actual Procedures p Right Total Knee Arthroplasty, Cemented(Right) - Farrukh Shaffer MD Surgeon Farrukh Shaffer MD Office Services Coordinator Brijesh VILLARREAL Estimated Blood Loss 5 Findings Consistent with Post-Op Diagnosis Specimens Bone cuts Drains Hemovac Drain Anesthesia Type MAC Spinal Regional Complications none Disposition Accompanied Patient To Recovery: No Disposition: Recovery Room Overlapping Procedure I was immediately available: during the entire case.
--- NOTE | 2019-03-25 09:55 | Operative Report ---
Post Operative Report Pre & Post Diagnosis Operation Date: 03/25/19 07:30 Pre-Op Diagnosis: Right Knee End-Stage Osteoarthritis Post-Op Diagnosis: Right Knee End-Stage Osteoarthritis I identified the patient and participated in the time-out.: Yes Procedure Operation Date: 03/25/19 07:30 Actual Procedures p Right Total Knee Arthroplasty, Cemented(Right) - Farrukh Shaffer MD Surgeon Farrukh Shaffer MD Dulite Machine Bluer Brijesh VILLARREAL Estimated Blood Loss 5 Findings Consistent with Post-Op Diagnosis Specimens Bone cuts Drains 2 Hemovac Anesthesia Type MAC Spinal Regional Complications none Disposition Accompanied Patient To Recovery: No Disposition: Recovery Room Indications 68-year-old active female with bilateral knee pain. She had extensive conservative management for osteoarthritis in her knees. She is [id number] on flexion views bilateral knees with right knee [id number] medial and lateral compartment left knee medial compartment. Description of Procedure Patient taken to the operating room placed supine on the operating table and anesthetized under spinal MAC regional anesthesia. Exam under anesthesia demonstrated flexion contracture of 10 degrees but good knee flexion. A pneumatic tourniquet was placed about the thigh of the right lower extremity. The right lower extremity was prepped and draped in usual fashion. Leg was elevated exsanguinated with an Esmarch bandage and the pneumatic was raised to 300 mm mercury. An anterior incision was made across the right knee. The skin was incised longitudinally subcutaneous flaps were elevated and an incision was made through the medial retinaculum extending up into the mid third of the quadriceps tendon and extended down to the medial tibial tubercle. Intra- articular findings demonstrated tricompartmental DJD with [id number] medial compartment some chondrocalcinosis patella articular surface versus steroid deposition remnants. The knee was exposed by excising the infrapatellar fat pad, excising the meniscal remnants and anterior cruciate ligament. Any inflamed synovial tissue was resected. The fat pad over the anterior femur was resected for placement of the component in that area. The lateral synovial bands were release. Appropriate releases were performed to balance ligaments. The femur was exposed. The custom femoral cutting block was pinned in position. The distal femoral cutting block was applied. The distal femoral cut was made with the oscillating saw. The size 9, 4-in-1 cutting block was placed. The anterior and posterior chamfer cuts were made. The knee was extended and a subperiosteal peel lateral release was performed around the patella. The patella width was measured and width was reproduced using freehand cut technique. The 32 x 8.5 millimeter symmetrical patella was used. 3 drill holes are made for the pegs. The tibia was exposed. A custom tibial cutting block was positioned and drill holes were made for the cutting guide. Cutting guide was placed and the proximal cut was made with the oscillating saw. All osteophytes were resected. The lamina mine motor engineer was used to assess ligamentous balance and the ligaments were balanced in extension and flexion. The tibia was reexposed and measured for a size E tibial component. This was externally rotated in line with the tibial tubercle and the fixation pins were drilled. The proximal tibia was fashioned with the drill and punch. The size 9 right CR femoral trial was inserted. The trial MC inserts were used. The 10 mm insert gave balanced ligaments through full range of motion. The patella tracked centrally. the trials were removed. The orthomix anesthetic cocktail was injected per protocol. The knee was then copiously irrigated with pulsatile lavage antibiotic solution with bacitracin. The final components were cemented with Simplex cement. The final components were [employer] persona right CR 9 standard femoral component, E tibial component, MC 10 mm polyethylene insert, 32x8.5 mm symmetrical patella. While the cement cured with the knee in full extension the Betadine soak was used per protocol. After the cement cured, the knee joint was copiously irrigated with antibiotic solution with bacitracin. 2 drains were brought out laterally and connected to a Hemovac. The quadriceps tendon and medial retinaculum were closed with interrupted [id number] #1 Vicryl sutures. The knee was taken through a full range of motion and repair was secure. The subcutaneous tissues were closed with 2-0 Vicryl sutures and skin was closed with jacklyn. Sterile dressings were applied and the patient tolerated the procedure well. Brijesh VILLARREAL my physician fundraising assistant, assisted in soft tissue retraction instrument management leg positioning the closure and will participate in the postoperative care of the patient. I attest to the content of the Intraoperative Record and any orders documented therein. Any exceptions are noted below.
--- NOTE | 2019-03-25 10:13 | XRay Report ---
XR knee RT 2V routine CLINICAL HISTORY: Postoperative evaluation. COMPARISON: None FINDINGS: Alignment of the total right knee arthroplasty is anatomic. There is no fracture or unexpe cted radiopaque foreign body. There are drains and skin jacklyn. IMPRESSION: Expected findings following total right knee arthroplasty. Electronically signed by: Jim Daniels M.D. 03/25/2019 10:12 AM
--- NOTE | 2019-03-25 10:20 | Anesthesiology Progress Note ---
Date of Service March 25, 2019 Anesthesia Post Procedure Vital Signs Vital Signs: Temp Pulse Pulse Resp BP Pulse Ox 03/25/19 10:10 37.3 C 82 16 130/77 95 03/25/19 10:00 83 16 137/75 100 03/25/19 09:50 83 19 137/75 100 03/25/19 09:41 36.7 C 89 16 131/65 95 03/25/19 05:58 36.3 C L 75 20 178/97 H 99 Pain Intensity Right Knee: Pain Intensity: 2 Transfer of Care Handoff Completed per policy Notes Mental Status: alert / awake / arousable Patient Amnestic to Procedure: Yes Nausea / Vomiting: adequately controlled Pain: adequately controlled Airway Patency, RR, SpO2: stable & adequate BP & HR: stable & adequate Hydration State: stable & adequate Neuraxial Anesthesia: was administered and sensory block is resolving Anesthetic Complications: no major complications apparent and Pt Satisfied with anesthetic care
[2019-03-25] MEDS ORDERED: bisacodyL 10 MG SUPP PR PRN (10:42)
[2019-03-25] MEDS ORDERED: MAGNESIUM HYDROXIDE SUSP 30 ML UDC PO PRN (10:42)
[2019-03-25] MEDS ORDERED: NALOXONE HCL 0.4 MG/1 ML VIAL/CARP IV PRN (10:42)
[2019-03-25] MEDS ORDERED: SODIUM CHLORIDE 0.9% 1000ML 1,000 ML IV SCH (10:42)
[2019-03-25] MEDS ORDERED: HYDROmorphone INJ 0.5 MG/0.5 ML SYR IV PRN (10:42)
[2019-03-25] MEDS ORDERED: OXYCODONE HCL IR 5 MG TAB (IMMEDIATE RELEASE) PO PRN (10:42)
--- NOTE | 2019-03-25 12:56 | Consultation ---
Date of Consultation March 25, 2019 Assessment & Plan (1) HTN (hypertension): (2) HLD (hyperlipidemia): (3) Anxiety: (4) Status post total right knee replacement: 68yoF with hx of HTN, HLD, anxiety, breast cancer s/p surgery and radiation in remission admitted s/p R total knee arthroplasty today. Medical consult placed for management of hypertension. Post R total knee arthroplasty Adequate pain control at this time Cefazolin x 2 bags Continue tylenol 1g Q8H and celebrex BID donell Dilaudid and oxycodone prn Bowel regimen in place colace and senokot donell and dulcolax prn HTN Mildly hypertensive 152/81 Did not receive lopressor this AM, ordered 50mg x 1 now given hypertensive Continue home lopressor 50mg daily, lisinopril 5mg QPM, and aspirin 81mg daily HLD Continue home lipitor 10mg QAM Anxiety Continue home bupropion 150mg BID and clonazepam 0.5mg QPM FEN/GI: on IVFs 100cc NS, heart healthy diet Code: Full DVT prophylaxis: per ortho team Dispo: med/surg (5) Breast cancer: Supervising Physician Co-Signing Physician Notes Patient seen and examined with Dr. Abbasi. I agree with their exam findings, review of systems, assessment and plan. I have personally reviewed the lab work and imaging from today. patient doing well after knee surgery, pain controlled, no distress provided with one time dose of BP medications for elevated pressure no chest pain, no dyspnea, tolerating diet Exam: WDWN female in NAD, lungs CTA bilaterally, normal effort, heart regular S1 S2 no murmurs, abdomen soft, NT, ND, + BS - s/p Right total Knee : pain control, DVT prophylaxis, d/c planning per ortho, encourage patient to use incentive spirometry - HTN: continue on Lopressor, provided with dose after surgery check BMP in the morning History of Present Illness Requesting Physician: Dr. Shaffer Reason for Consultation: Medical Management Attending Physician: Farrukh Shaffer MD History of Present Illness 68yoF with hx of HTN, HLD, anxiety, breast cancer s/p surgery and radiation in remission admitted s/p R total knee arthroplasty today. Medical consult placed for management of hypertension. Pt reports good pain control at this time. Believes blood pressure likely elevated due to anxiety in the setting of surgery. Reports recent change in BP regimen as pt was having hyponatremia on previous regimen. Denies any fever, chills, cp, sob, abdominal pain, nausea, vomiting, diarrhea, constipation. Has not urinated yet post op (no alonso in place). Last BM this AM. No other concerns at this time. Surgical Hx: appendectomy, L-spine surgery, salpingectomy - Right, L breast lum pectomy with axillary node resection, rotator cuff surgery x 2 Right, D&C Social Hx: smoked for most of adult life 1-2ppd, quit in january 2019. Drinks socially once a month. No recreational drug use. Allergies Allergy/AdvReac Type Severity Reaction Status Date / Time meperidine AdvReac Unknown cold/clammy Verified 03/25/19 05:45 feeting after IM injection Home Medications Home Medications Medication Instructions Recorded Confirmed Type aspirin [Aspir-81] 81 mg PO QPM 02/19/19 02/19/19 History atorvastatin [Lipitor] 10 mg PO QAM 02/19/19 02/19/19 History bupropion HCl [Wellbutrin SR] 150 mg PO BID 02/19/19 03/25/19 History cholecalciferol (vitamin D3) 5,000 unit PO DAILY 02/19/19 03/25/19 History [Vitamin D3] clonazepam 0.5 mg PO QPM 02/19/19 03/25/19 History lisinopril 5 mg PO QPM 02/19/19 02/19/19 History loratadine [Claritin] 10 mg PO QAM 02/19/19 02/19/19 History meloxicam 15 mg PO QAM 02/19/19 02/19/19 History metoprolol tartrate [Lopressor] 50 mg PO DAILY 03/25/19 03/25/19 History Patient History Medical History Degenerative disc disease History of depression History of left breast cancer s/p left breast lumpectomy + LND/XRT Hyperlipidemia Hypertension IBS (irritable bowel syndrome) diet controlled Restless leg syndrome Sciatica Scoliosis Surgical History History of appendectomy History of colonoscopy History of dilation and curettage History of lumbar discectomy X2 History of lumpectomy of left breast + AXILLARY LND History of repair of rotator cuff ARTHROSCOPY - R X2, L X 1 History of surgery FOR RECTAL ABCESS History of wisdom tooth extraction Hx of laparoscopy LAPAROSCOPIC RIGHT SALPINGECTOMY Social History Preferred Language: Danish Communication Ability: Effective News Assistant Required: No Beliefs That Will Affect Care: Voodoo Voodoo Beliefs: YAZDANISM Current Living Situation: Alone Other Information That Helps Us Care for You: Yes (LIVES [facility], 3 FLOORS - CONCERNED R/T POST OP NEEDS) Feels Safe at Home: Yes Smoking Status: Former smoker (QUIT IN 2018, SMOKED FOR 41 YEARS) Tobacco Type: cigarettes ; Cigarettes Per Day: 40 ; Do You Dip or Chew Tobacco: No ; Smoking End Date: QUIT JAN 2019; HX < 1PPD X 30 INTERMITTENT YEARS ; Hx Alcohol Use: Yes Hx Substance Use: No Review of Systems Review of Systems: As per HPI Physical Exam Physical Exam: General: In NAD, pleasant Neuro: A&O x 4 Pulm: CTAB equal breath sounds bilaterally CV: RRR, no m/r/g Abdomen:+BS, no TTP in all quadrants, non-distended MSK: R knee dressing C/D/I, able to move toes, skin is warm to touch, DP pulse 2+ LE: no pedal edema bilaterally, no left calf TTP Results & Data Vital Signs (Past 12 Hours) Vital Signs Temp Pulse Pulse Resp BP Pulse Ox 03/25/19 12:32 83 18 152/81 H 93 03/25/19 11:37 81 18 149/88 H 95 03/25/19 11:04 36.3 C L 18 139/81 92 03/25/19 10:30 36.5 C 86 16 130/80 93 03/25/19 10:10 37.3 C 82 16 130/77 95 03/25/19 10:00 83 16 137/75 100 03/25/19 09:50 83 19 137/75 100 03/25/19 09:41 36.7 C 89 16 131/65 95 03/25/19 05:58 36.3 C L 75 20 178/97 H 99 PG Care Time/CCT Total # of Minutes Spent Total Time Spent with Patient: Total time spent is greater than 50% in coordination of care (as documented) at patient's floor/unit and/or counseling patient: Resident Activity Tracking Resident Involvement: Resident Care Provided Care Provided: Adult [facility]
[2019-03-25] MEDS ORDERED: METOPROLOL TARTRATE 50 MG TAB PO STA (13:22)
[2019-03-25] MEDS: ACETAMINOPHEN 500 MG TAB PO SCH ×2 (13:50→21:28)
[2019-03-25] MEDS: CEFAZOLIN 1000MG 1,000 MG/7.5 ML SYR IV SCH (15:56)
[2019-03-25] MEDS: CeleBREX 200 MG CAP PO SCH (20:08)
[2019-03-25] MEDS: DOCUSATE SODIUM 100 MG CAP PO SCH (20:40)
[2019-03-25] MEDS: BuPROPion SR 150 MG TABCR PO SCH (20:40)
[2019-03-25] MEDS: ASPIRIN 81 MG ECTAB PO SCH (20:40)
[2019-03-25] MEDS ORDERED: lisinopriL 5 MG TAB PO SCH (21:00)
[2019-03-25] MEDS ORDERED: SENNA 8.6 MG TAB PO SCH (21:00)
[2019-03-25] MEDS ORDERED: clonazePAM 0.5 MG TAB PO SCH (21:00)
[2019-03-26] MEDS: CEFAZOLIN 1000MG 1,000 MG/7.5 ML SYR IV SCH (00:07)
[2019-03-26 05:27] LABS: Hematocrit (blood only) 33.8 % (37-47); Hemoglobin 11.3 g/dL (12.0-16.0); Mean Corpuscular Hemoglobin 30.9 pg (25-34); Mean Corpuscular Hgb Conc 33.4 g/dL (32-36); Mean Corpuscular Volume 92.3 fL (80-100); Platelet Count 251 K/uL (130-400); RDW Coefficient of Variation 14.3 % (11.5-14.5); RDW Standard Deviation 48.1 fL (36.4-46.3); Red Blood Count 3.66 M/uL (4.2-5.4); White Blood Count 14.78 K/uL (4.8-10.8)
[2019-03-26 06:02] LABS: Calcium 9.5 mg/dl (8.5-10.1); Est GFR (African American) 55.1; Est GFR (Non-African American) 47.5; Potassium 4.4 mmol/L (3.5-5.1)
[2019-03-26 06:21] LABS: BUN Creatinine Ratio 22.2 (10-20)
[2019-03-26] MEDS: ACETAMINOPHEN 500 MG TAB PO SCH ×2 (06:28→13:13)
[2019-03-26] MEDS: ASPIRIN 81 MG ECTAB PO SCH (08:06)
[2019-03-26] MEDS: BuPROPion SR 150 MG TABCR PO SCH (08:06)
[2019-03-26] MEDS: DOCUSATE SODIUM 100 MG CAP PO SCH (08:06)
[2019-03-26] MEDS: CeleBREX 200 MG CAP PO SCH (08:07)
--- NOTE | 2019-03-26 08:21 | Orthopedic Progress Note ---
Date of Service March 26, 2019 Assessment & Plan (1) Right knee DJD: POD 1 s/p Right TKA PT/OT protocols. WBAT DVT prophylaxis - ASA, SCD's, CLAUDIA's Pain management - Oxcodone,Tylenol, IV Dilaudid, Celebrex DC plans - services upon discharge. Will recheck PT's progress this afternoon. Subjective Sitting up in bed doing bedside exercises currently. No complaints this AM. Pain controlled. Denies SOB,CP,LH. Had foot drop sx's last night which have resolved overnight. Hoping to go home today if possible. Physical Exam Physical Exam: Dressings C/D/I. Calves soft, NT. NV intact. (slight residual numbness in right toes) Toes mobile. HV 110ml's Results & Data Vital Signs (Past 12 Hours) Vital Signs Temp Pulse Resp BP Pulse Ox 03/26/19 07:25 36.9 C 67 16 145/79 H 96 03/26/19 03:32 36.6 C 65 16 145/73 H 93 03/25/19 23:59 36.4 C L 72 16 143/79 H 94 03/25/19 20:41 63 163/86 H 03/25/19 20:26 174/90 H Laboratory Results Laboratory Results WBC 14.78 K/uL (4.8-10.8) H 03/26/19 05:03 RBC 3.66 M/uL (4.2-5.4) L 03/26/19 05:03 Hgb 11.3 g/dL (12.0-16.0) L 03/26/19 05:03 Hct 33.8 % (37-47) L 03/26/19 05:03 MCV 92.3 fL (80-100) 03/26/19 05:03 MCH 30.9 pg (25-34) 03/26/19 05:03 MCHC 33.4 g/dL (32-36) 03/26/19 05:03 RDW Std Deviation 48.1 fL (36.4-46.3) H 03/26/19 05:03 RDW Coeff of Arun 14.3 % (11.5-14.5) 03/26/19 05:03 Plt Count 251 K/uL (130-400) 03/26/19 05:03 MPV 9.0 fL (7.4-10.4) 03/26/19 05:03 Immature Gran % (Auto) 0.3 % 02/24/19 13:09 Neut % (Auto) 63.9 % 02/24/19 13:09 Lymph % (Auto) 28.0 % 02/24/19 13:09 Spink % (Auto) 5.0 % 02/24/19 13:09 Eos % (Auto) 2.6 % 02/24/19 13:09 Baso % (Auto) 0.2 % 02/24/19 13:09 Immature Gran # (Auto) 0.02 K/uL (0.00-0.02) 02/24/19 13:09 Neut # (Auto) 4.23 K/uL (1.4-6.5) 02/24/19 13:09 Lymph # (Auto) 1.85 K/uL (1.2-3.4) 02/24/19 13:09 Spink # (Auto) 0.33 K/uL (0.11-0.59) 02/24/19 13:09 Eos # (Auto) 0.17 K/uL (0-0.5) 02/24/19 13:09 Baso # (Auto) 0.01 K/uL (0-0.2) 02/24/19 13:09 PT 9.8 Seconds (9.0-12.0) 02/24/19 13:09 INR 1.0 (0.9-1.1) 02/24/19 13:09 APTT 26.4 Seconds (21.0-31.0) 02/24/19 13:09 PTT Ratio 1.0 02/24/19 13:09 Sodium 137 mmol/L (136-145) 03/26/19 05:03 Potassium 4.4 mmol/L (3.5-5.1) D 03/26/19 05:03 Chloride 106 mmol/L (98-107) 03/26/19 05:03 Carbon Dioxide 25 mmol/L (21-32) 03/26/19 05:03 Anion Gap 6.0 (3-11) 03/26/19 05:03 BUN 26 mg/dl (7-18) H 03/26/19 05:03 Creatinine 1.19 mg/dl (0.6-1.2) 03/26/19 05:03 Est Cr Clr Drug Dosing 21.0 ml/min 03/26/19 05:03 Est GFR ( Amer) 55.1 03/26/19 05:03 Est GFR (Non-Af Amer) 47.5 03/26/19 05:03 BUN/Creatinine Ratio 22.2 (10-20) H 03/26/19 05:03 Glucose 104 mg/dl (70-99) H 03/26/19 05:03 Estimat Average Glucose 114 mg/dl 02/24/19 13:09 Hemoglobin A1c 5.6 % (4.5-5.6) 02/24/19 13:09 Calcium 9.5 mg/dl (8.5-10.1) 03/26/19 05:03 Albumin 3.9 gm/dl (3.4-5.0) 02/24/19 13:09 Urine Color Yellow 02/24/19 Unknown Urine Appearance Clear (Clear) 02/24/19 Unknown Urine pH 6.5 (4.5-7.5) 02/24/19 Unknown Ur Specific [place] 1.017 (1.000-1.030) 02/24/19 Unknown Urine Protein Negative (Negative) 02/24/19 Unknown Urine Glucose (UA) Negative (Negative) 02/24/19 Unknown Urine Ketones Negative (Negative) 02/24/19 Unknown Urine Blood Negative (Negative) 02/24/19 Unknown Urine Nitrite Negative (Negative) 02/24/19 Unknown Urine Bilirubin Negative (Negative) 02/24/19 Unknown Urine Urobilinogen Negative (Negative) 02/24/19 Unknown Ur Leukocyte Esterase 2+ (Negative) H 02/24/19 Unknown Urine WBC (Auto) 10-30 /hpf (0-5) H 02/24/19 Unknown Urine RBC (Auto) 0-4 /hpf (0-4) 02/24/19 Unknown U Hyaline Cast (Auto) 0 /lpf (0-5) 02/24/19 Unknown U Epithel Cells (Auto) 20-30 /lpf (0-5) H 02/24/19 Unknown Urine Bacteria (Auto) Negative (Negative) 02/24/19 Unknown Blood Type A Positive 02/24/19 13:09 Antibody Screen NEGATIVE 02/24/19 13:09
--- NOTE | 2019-03-26 08:32 | Anesthesiology Progress Note ---
Date of Service March 26, 2019 Anesthesia Post Procedure Vital Signs Vital Signs: Temp Pulse Pulse Resp BP Pulse Ox 03/26/19 07:25 36.9 C 67 16 145/79 H 96 03/26/19 03:32 36.6 C 65 16 145/73 H 93 03/25/19 23:59 36.4 C L 72 16 143/79 H 94 03/25/19 20:41 63 163/86 H 03/25/19 20:26 174/90 H 03/25/19 20:06 36.7 C 66 16 172/98 H 96 03/25/19 14:32 36.3 C L 76 18 144/86 H 03/25/19 12:32 83 18 152/81 H 93 03/25/19 11:37 81 18 149/88 H 95 03/25/19 11:04 36.3 C L 18 139/81 92 03/25/19 10:30 36.5 C 86 16 130/80 93 03/25/19 10:10 37.3 C 82 16 130/77 95 03/25/19 10:00 83 16 137/75 100 03/25/19 09:50 83 19 137/75 100 03/25/19 09:41 36.7 C 89 16 131/65 95 Pain Intensity Right Knee: Pain Intensity: 2 Notes Mental Status: alert / awake / arousable and participated in evaluation Patient Amnestic to Procedure: Yes Nausea / Vomiting: adequately controlled Pain: adequately controlled Airway Patency, RR, SpO2: stable & adequate BP & HR: stable & adequate Hydration State: stable & adequate Neuraxial Anesthesia: was administered and sensory block resolved Anesthetic Complications: no major complications apparent and Pt Satisfied with anesthetic care
[2019-03-26] MEDS ORDERED: CHOLECALCIFEROL 1,000 UNITS TAB PO SCH (09:00)
[2019-03-26] MEDS ORDERED: METOPROLOL TARTRATE 50 MG TAB PO SCH (09:00)
[2019-03-26] MEDS ORDERED: LORATADINE 10 MG TAB PO SCH (09:00)
[2019-03-26] MEDS ORDERED: ATORVASTATIN 10 MG TAB PO SCH (09:00)
[2019-03-26] MEDS ORDERED: MULTIVITAMIN TAB PO SCH (09:00)
--- NOTE | 2019-03-26 13:44 | Hospitalist Progress Note ---
Date of Service March 26, 2019 Assessment & Plan (1) HTN (hypertension): BP stable on Lopressor, Lisinopril BMP normal this morning continue home regimen on discharge (2) HLD (hyperlipidemia): continue statin therapy (3) Anxiety: mood stable, continue home Wellbutrin (4) Status post total right knee replacement: pain is well controlled, moving around well okay for d/c today (5) Breast cancer: h/o such, not on any watermaster treatment patient is safe for discharge from medical perspective, will sign off Subjective patient feeling great, no issues over night knee pain is well controlled, planning to leave today eating well, breathing stable labs show Cr at baseline, electrolytes stable, Hb down very slightly at 11 Review of Systems Review of Systems: All systems reviewed & are unremarkable except as noted in HPI & below Musculoskeletal: + joint pain (right knee) Physical Exam Constitutional: WD/WN, vitals as above Eyes: PERRL, conjunctivae normal, anicteric sclerae ENMT: external ear and nose normal, oropharynx normal Neck: trachea midline, no thyromegaly Respiratory: normal respiratory effort, lungs clear to auscultation Cardiovascular: RRR, no murmur, no edema Gastrointestinal (Abdomen): normal bowel sounds, soft, nontender, no hepatosplenomegaly Musculoskeletal: Head/Neck/Chest: normocephalic and head atraumatic Extremities: strength 5/5 throughout; + extremities abnormal to inspection (right knee swollen, with drain, tender) Skin: no rashes, warm and dry Neurologic: patellar DTR's 2+ bilat, sensation intact and PERRL, EOMI, accommodation nl, no face palsy, no dysarthria Psychiatric: A+Ox3, euthymic affect Lymphatic: no cervical or axillary lymphadenopathy Results & Data Vital Signs (Past 12 Hours) Vital Signs Temp Pulse Resp BP Pulse Ox 03/26/19 07:25 36.9 C 67 16 145/79 H 96 03/26/19 03:32 36.6 C 65 16 145/73 H 93 Laboratory Results Laboratory Results - last 24 hr 03/26/19 03/26/19 03/26/19 05:03 05:03 05:03 WBC 14.78 H RBC 3.66 L Hgb 11.3 L Hct 33.8 L MCV 92.3 MCH 30.9 MCHC 33.4 RDW Std Deviation 48.1 H RDW Coeff of Arun 14.3 Plt Count 251 MPV 9.0 Sodium 137 Potassium 4.4 D Chloride 106 Carbon Dioxide 25 Anion Gap 6.0 BUN 26 H Creatinine 1.19 Est Cr Clr Drug Dosing 21.0 Est GFR ( Amer) 55.1 Est GFR (Non-Af Amer) 47.5 BUN/Creatinine Ratio 22.2 H Glucose 104 H Calcium 9.5 Hepatitis C Ab Screen Neg Medications Administered Current Inpatient Medications Acetaminophen (Tylenol) 1,000 mg PO Q8 SHI Stop: 04/24/19 13:59 Last Admin: 03/26/19 13:13 Dose: 1,000 mg Documented by: Aspirin (Ecotrin Ectab) 81 mg PO BID SHI Stop: 04/24/19 20:59 Last Admin: 03/26/19 08:06 Dose: 81 mg Documented by: Atorvastatin Calcium (Lipitor) 10 mg PO QAM SHI Stop: 04/25/19 08:59 Last Admin: 03/26/19 08:06 Dose: 10 mg Documented by: Bisacodyl (Dulcolax) 10 mg DC DAILY PRN PRN Reason: Constipation Stop: 04/24/19 10:41 Bupropion HCl (Wellbutrin-Sr) 150 mg PO BID SHI Stop: 04/24/19 20:59 Last Admin: 03/26/19 08:06 Dose: 150 mg Documented by: Celecoxib (Celebrex) 200 mg PO BID HSI Stop: 04/24/19 20:59 Last Admin: 03/26/19 08:07 Dose: 200 mg Documented by: Clonazepam (Klonopin) 0.5 mg PO QPM SHI Stop: 04/24/19 20:59 Last Admin: 03/25/19 21:28 Dose: 0.5 mg Documented by: Diphenhydramine HCl (Benadryl Capsule) 25 mg PO Q8H PRN PRN Reason: Itching Stop: 04/24/19 10:41 Docusate Sodium (Colace) 100 mg PO BID SHI Stop: 04/24/19 20:59 Last Admin: 03/26/19 08:06 Dose: 100 mg Documented by: Hydromorphone HCl (Dilaudid) 0.5 mg IV Q4H PRN PRN Reason: Pain Stop: 04/08/19 10:41 Lisinopril (Zestril) 5 mg PO QPM [facility] Stop: 04/24/19 20:59 Last Admin: 03/25/19 20:40 Dose: 5 mg Documented by: Loratadine (Claritin) 10 mg PO QAM [facility] Stop: 04/25/19 08:59 Last Admin: 03/26/19 08:07 Dose: 10 mg Documented by: Magnesium Hydroxide (Milk Of Magnesia) 30 ml PO Q6H PRN PRN Reason: Constipation Stop: 04/24/19 10:41 Metoprolol Tartrate (Lopressor) 50 mg PO DAILY [facility] Stop: 04/25/19 08:59 Last Admin: 03/26/19 08:06 Dose: 50 mg Documented by: Multivitamins (Multivitamin Tab) 1 tab PO QAM [facility] Stop: 04/25/19 08:59 Last Admin: 03/26/19 08:06 Dose: 1 tab Documented by: Naloxone HCl (Narcan) 0.1 mg IV Q5M PRN PRN Reason: Oversedation/Resp Depression Stop: 04/24/19 10:41 Ondansetron HCl (Zofran) 4 mg IV Q6H PRN PRN Reason: Nausea And Vomiting Stop: 04/24/19 10:41 Oxycodone HCl (Roxicodone Immediate Rel) 5 - 10 mg PO Q4H PRN PRN Reason: Pain Stop: 04/08/19 10:41 Last Admin: 03/26/19 11:38 Dose: 5 mg Documented by: Sennosides (Senokot) 17.2 mg PO HS [facility] Stop: 04/24/19 20:59 Last Admin: 03/25/19 20:40 Dose: 17.2 mg Documented by: Vitamin D (Vitamin D3) 5,000 units PO DAILY [facility] Stop: 04/25/19 08:59 Last Admin: 03/26/19 08:06 Dose: 5,000 units Documented by: PG Care Time/CCT Total # of Minutes Spent Total Time Spent with Patient: Total time spent is greater than 50% in coordination of care (as documented) at patient's floor/unit and/or counseling patient:
--- NOTE | 2019-03-31 22:59 | Discharge Summary ---
HISTORY OF PRESENT ILLNESS: This is a 68-year-old female patient of Dr. Shaffer'hilda complaining of chronic right knee pain, longstanding, now progressively getting worse. The patient has failed conservative treatment. She was diagnosed with end-stage osteoarthritis per clinical and radiographic exams. The patient elected to proceed with a right total knee arthroplasty. PAST MEDICAL HISTORY: Hypertension, hypercholesterolemia, anxiety, osteoarthritis, spine problems, neck problems, sciatica and history of breast cancer. POSTOPERATIVE COURSE: The patient underwent a right total knee arthroplasty on 03/25/2019. She was followed closely with physical therapy, pain control and DVT prophylaxis in the form of aspirin. The night of surgery, the patient did have footdrop symptoms, but by postoperative day #1, this had resolved. The patient's Hemovac only put out 110 mL on the first night. Otherwise, had an uneventful postoperative course. PHYSICAL EXAMINATION: On discharge, right knee dressings were clean, dry and intact. There was no drainage. Foot and ankle were mobile. Neurologically and neurovascularly, she is intact in her right lower extremity. DIAGNOSES: Status post right total knee arthroplasty, hypertension, hypercholesterolemia, anxiety, osteoarthritis, spine problems, neck problems, sciatica and breast cancer. PLAN: The patient was discharged home with home health services. Her drain was discontinued prior to discharge. She will continue her preadmission medications with the addition of aspirin twice daily for DVT prophylaxis and the addition of pain medications. The patient will follow up as scheduled as an outpatient.
== END 2019-03-26 16:20 | disposition home health service (06) | DRG 470 ==
LOC: ASU 05:25 → 3E 09:45

== ENCOUNTER 2020-03-23 05:13 | Observation (INO) ==
--- NOTE | 2020-02-19 15:58 | PAT Medication Instructions ---
Medication Instructions Date of Service February 19, 2020 Home Medications atorvastatin [Lipitor] 10 mg PO QAM bupropion HCl [Wellbutrin SR] 150 mg PO BID cholecalciferol (vitamin D3) [Vitamin D3] 5,000 unit PO QAM clonazepam 0.5 mg PO QPM lisinopril 5 mg PO QPM loratadine [Claritin] 10 mg PO QAM metoprolol tartrate [Lopressor] 50 mg PO QAM acetaminophen [Tylenol Extra Strength] 500 mg PO Q6H PRN amoxicillin 500 mg PO UD PRN aspirin [Aspir-81] 81 mg PO PM carisoprodol [Soma] 350 mg PO BID PRN meloxicam 15 mg PO QAM Continue as directed amoxicillin 500 mg PO UD PRN ASK your surgeon for instructions meloxicam 15 mg PO QAM DO NOT take the morning of surgery cholecalciferol (vitamin D3) [Vitamin D3] 5,000 unit PO QAM loratadine [Claritin] 10 mg PO QAM carisoprodol [Soma] 350 mg PO BID PRN Take morning of surgery With a small sip of water, OTHERWISE NOTHING TO EAT OR DRINK AFTER MIDNIGHT: atorvastatin [Lipitor] 10 mg PO QAM bupropion HCl [Wellbutrin SR] 150 mg PO BID metoprolol tartrate [Lopressor] 50 mg PO QAM acetaminophen [Tylenol Extra Strength] 500 mg PO Q6H PRN (okay to take up to 4 hours prior to surgery if needed) Take evening before surgery bupropion HCl [Wellbutrin SR] 150 mg PO BID clonazepam 0.5 mg PO QPM lisinopril 5 mg PO QPM acetaminophen [Tylenol Extra Strength] 500 mg PO Q6H PRN (if needed) aspirin [Aspir-81] 81 mg PO PM carisoprodol [Soma] 350 mg PO BID PRN (if needed) Other Notes If you have any questions please call us at [phone] or [phone] or [phone] or [phone]
--- NOTE | 2020-02-23 13:35 | Anesthesiology Consultation ---
Date of Service February 23, 2020 Assessment & Plan (1) Encounter for pre-operative examination: Chart Review Chart Review: Pending: Refer to Additional Notes / Consult section (pending surgeon ordered PCP clearance scheduled 02/25) and Patient seen in Pre Admission Testing Surgeon ordered PCP clearance scheduled 02/25 History of L4-5 disectomy with mild scoliosis - no issues noted with SAB with right TKA. Per PAT appt on 02/23/20, no recent travel. No known Covid positive contacts or Covid related symptoms. Educated patient to follow up with surgeon's office regarding Covid testing. Educated on importance of self quarantining, social distancing and wearing mask in public both for the patient and household contacts. Right TKA 03/25/19= Done under SAB at L3-4- 1 attempt. No anesthesia issues noted per record Teaching & Discussion Pre-Anesthesia Teaching/Discussion Notes: Instructed NPO after midnight before surgery,except medications with 15 cc of water. Medication instructions provided according to the PAT guidelines. History Surgery Operation Date: 03/23/20 13:50 Proposed Procedures p Left Total Knee Arthroplasty - Farrukh Shaffer MD Height/Weight Height: 5 ft 2 in Weight: 61.6 kg Allergies Allergy/AdvReac Type Severity Reaction Status Date / Time meperidine AdvReac Unknown cold/clammy Verified 02/18/20 10:56 feeting after IM injection Medications Home Medications Medication Instructions Recorded Confirmed Last Taken atorvastatin [Lipitor] 10 mg PO QAM 02/19/19 02/18/20 03/25/19 04:30 bupropion HCl [Wellbutrin SR] 150 mg PO BID 02/19/19 02/18/20 03/25/19 04:30 cholecalciferol (vitamin D3) 5,000 unit PO QAM 02/19/19 02/18/20 03/24/19 08:00 [Vitamin D3] clonazepam 0.5 mg PO QPM 02/19/19 02/18/20 03/24/19 20:00 lisinopril 5 mg PO QPM 02/19/19 02/18/20 03/23/19 20:00 loratadine [Claritin] 10 mg PO QAM 02/19/19 02/18/20 03/24/19 08:00 metoprolol tartrate [Lopressor] 50 mg PO QAM 1002/18/20 03/24/19 08:00 acetaminophen [Tylenol Extra 500 mg PO Q6H PRN 02/18/20 02/18/20 Unknown Strength] amoxicillin 500 mg PO UD PRN 02/18/20 02/18/20 Unknown aspirin [Aspir-81] 81 mg PO PM 02/18/20 02/18/20 Unknown carisoprodol [Soma] 350 mg PO BID PRN 02/18/20 02/18/20 Unknown meloxicam 15 mg PO QAM 02/18/20 02/18/20 Unknown Past Medical History Medical History Degenerative disc disease History of depression Stable and controlled History of left breast cancer s/p left breast lumpectomy with node excision s/p XRT (2011) Hyperlipidemia Hypertension IBS (irritable bowel syndrome) diet controlled Restless leg syndrome Sciatica Scoliosis Exercise / Class Metabolic Activity II 4-5 Yardwork/Stairs/Walk up hill (one flight of stairs - no chest pain or SOB ) Past Family History Family History Other No family history of adverse response to anesthesia Past Surgical History Surgical History History of appendectomy History of colonoscopy History of dilation and curettage History of lumbar discectomy X2 History of lumpectomy of left breast + AXILLARY LND History of repair of rotator cuff ARTHROSCOPY - R X2, L X 1 History of right knee joint replacement 03/25/19 [facility] History of surgery FOR RECTAL ABCESS History of wisdom tooth extraction Hx of laparoscopy LAPAROSCOPIC RIGHT SALPINGECTOMY Past Anesthesia History No Hx of Anesthesia Complications and No Family Hx of Anesthesia Complications History of PONV No Hx of Motion Sickness and History of PONV (one episode - post op on drive home ) Social History Smoking Status: Former smoker tobacco type: cigarettes Smoking cigarettes per day: 40 Do You Dip or Chew Tobacco: No Smoking End Date: quit december 2018 Hx Alcohol Use: Yes alcohol intake frequency: a few times a month Hx Substance Use: No substance use type: does not use Review of Systems Unknown snoring- lives alone. Patient denies chest pain, shortness of breath, dyspnea on exertion, reflux, cough, wheezing, palpitations. No hx of seizures, stroke, OR. No hx of blood clots or blood transfusions Physical Exam Vital Signs VITALS BP 167/94 P 63 TEMP 97.7 SP02 97% RESP 16 Constitutional no acute distress ENMT Mouth: no TMJ clicking Thyromental Distance: > or= 3.5 Finger Breadths (3.5) Mallampati Class: I Permanent bridge top right Caps molars Neck neck extension not limited Respiratory normal respiratory effort; no respiratory distress Auscultation: lungs clear to auscultation bilaterally; no wheezes Cardiovascular Rate/Rhythm: regular rate and regular rhythm Heart Sounds: no murmur Vessels: no carotid bruit Musculoskeletal Spine: no pain with cervical ROM Neurologic moves all extremities Psychiatric Orientation: alert Testing Laboratory Results 02/23/20 14:04 02/23/20 14:04 PT 9.9 Seconds (9.0-12.0) 02/23/20 14:04 INR 0.9 (0.9-1.1) 02/23/20 14:04 APTT 26.3 Seconds (21.0-31.0) 02/23/20 14:04 Hemoglobin A1c 5.4 % (4.5-5.6) 02/23/20 14:04 Urine Color Yellow 02/23/20 14:04 Urine Appearance Clear (Clear) 02/23/20 14:04 Urine pH 6.0 (4.5-7.5) 02/23/20 14:04 Ur Specific [place] 1.006 (1.000-1.030) 02/23/20 14:04 Urine Protein Negative (Negative) 02/23/20 14:04 Urine Glucose (UA) Negative (Negative) 02/23/20 14:04 Urine Ketones Negative (Negative) 02/23/20 14:04 Urine Nitrite Negative (Negative) 02/23/20 14:04 Ur Leukocyte Esterase Negative (Negative) 02/23/20 14:04 Blood Type A Positive 02/23/20 14:04 Antibody Screen NEGATIVE 02/23/20 14:04 Electrocardiogram Date: 02/23/20 Findings: + SB @ (58) Anteroseptal infarct (cited on or before Feb 09, 2005). Per cardio- no significant change from Feb 24, 2019 EKG (pt had negative stress test on 03/12/19 and right TKA on 03/25/19 without issues) Chest X-Ray Date: 02/23/20 Findings: + NAD Ill-defined right apical opacity redemonstrated suggestive of summation density. Stress Test Date: 03/12/19 Type: DSE Resting EF: 60-65% Resting LV Function: normal Resting RWMA: + none Valvular Disease: no significant valvular disease DSE negative for ischemia at 94% MPHR. Abnormal dobutamine EKG for ischemia with 1mm horizontal ST depression.
--- NOTE | 2020-02-23 14:56 | XRay Report ---
XR chest Pre-admission PA/Lat HISTORY: 69 years-old Female pat preoperative exam. No acute chest complaints COMPARISON: Chest CT 03/12/2019, chest radiograph 02/24/2019 TECHNIQUE: PA and lateral views of the chest FINDINGS: Cardiomediastinal and hilar silhouettes are within normal limits. Surgical clips are noted projecting over the lateral left breast. Ill-defined right apical opacity redemonstrated suggestive of summatio n density. No pneumothorax, pleural effusion, airspace consolidation or overt pulmonary edema. Degene rative changes of the spine. IMPRESSION: No acute process. ACT 112: Negative or not required by law. The above report was generated using voice recognition software. It may contain grammatical, syntax o r spelling errors. Electronically signed by: Steve Galloway M.D. 02/23/2020 2:55 PM
[2020-02-23 15:22] LABS: Basophils # (auto) 0.01 K/uL (0-0.2); Basophils % (auto) 0.1 %; Eosinophils # (auto) 0.35 K/uL (0-0.5); Eosinophils % (auto) 4.5 %; Hemoglobin 13.8 g/dL (12.0-16.0); Immature Granulocytes # (auto) 0.02 K/uL (0.00-0.02); Immature Granulocytes % (auto) 0.3 %; Lymphocytes # (auto) 2.26 K/uL (1.2-3.4); Lymphocytes % (auto) 28.9 %; Mean Corpuscular Hgb Conc 32.9 g/dL (32-36); Mean Corpuscular Volume 94.4 fL (80-100); Mean Platelet Volume 9.7 fL (7.4-10.4); Monocytes # (auto) 0.42 K/uL (0.11-0.59); Monocytes % (auto) 5.4 %; Neutrophils # (auto) 4.76 K/uL (1.4-6.5); Neutrophils % (auto) 60.8 %; Platelet Count 284 K/uL (130-400); RDW Standard Deviation 48.4 fL (36.4-46.3); Red Blood Count 4.45 M/uL (4.2-5.4); White Blood Count 7.82 K/uL (4.8-10.8)
--- NOTE | 2020-02-23 15:24 | Electrocardiogram Report ---
Test Reason : Blood Pressure : / mmHG Vent. Rate : 058 BPM Atrial Rate : 058 BPM P-R Int : 150 ms QRS Dur : 082 ms QT Int : 420 ms P-R-T Axes : 068 057 068 degrees QTc Int : 412 ms Sinus bradycardia Anteroseptal infarct (cited on or before 09-FEB-2005) Abnormal ECG When compared with ECG of 24-FEB-2019 13:08, No significant change Confirmed by Maulik Mcclain ([id number]) on 02/23/2020 3:23:46 PM Referred By: Farrukh Shaffer Confirmed By:Maulik Mcclain
[2020-02-23 15:29] LABS: Albumin Level 3.7 gm/dl (3.4-5.0); Appearance Urine Clear (Clear); Bilirubin Urine Negative (Negative); Blood Urine Negative (Negative); Calcium 10.7 mg/dl (8.5-10.1); Color Urine Yellow; Creatinine Clr Calc Pharmacy 46.7 ml/min; Est GFR (African American) 66.7; Est GFR (Non-African American) 57.6; Glucose Urine UA Negative (Negative); Ketones Urine Negative (Negative); Leukocyte Esterase Urine Negative (Negative); Nitrite Urine Negative (Negative); Potassium 4.3 mmol/L (3.5-5.1); Protein Urine Negative (Negative); Specific Gravity Urine 1.006 (1.000-1.030); Urobilinogen Urine Negative (Negative)
[2020-02-23 15:33] LABS: INR 0.9 (0.9-1.1); Partial Thromboplastin Ratio 0.9; Partial Thromboplastin Time 26.3 Seconds (21.0-31.0); Prothrombin Time 9.9 Seconds (9.0-12.0)
[2020-02-24 05:38] LABS: Estimated Average Glucose 108 mg/dl; Hemoglobin A1C 5.4 % (4.5-5.6)
--- NOTE | 2020-03-22 20:31 | History and Physical Report ---
DATE OF ADMISSION: 03/23/2020 CHIEF COMPLAINT: Chronic left knee pain and instability. HISTORY OF PRESENT ILLNESS: This is a 69-year-old female patient of Dr. Shaffer'hilda complaining of chronic left knee pain and instability, longstanding, now progressively getting worse. The patient has failed conservative treatment including intra-articular injections, the use of anti-inflammatories and home exercise programs. The patient has increased pain with weightbearing activities and her pain does interfere with her activities of daily living. The patient has been diagnosed with end-stage osteoarthritis per clinical and radiographic exams and wishes to proceed with a left total knee arthroplasty. PAST MEDICAL HISTORY: Hypertension, hypercholesterolemia, COPD, abnormal bleeding and bruising, osteoarthritis, back problems, sciatica, dental caps, history of breast cancer. SOCIAL HISTORY: Nonsmoker, nondrinker. FAMILY HISTORY: Noncontributory. REVIEW OF SYSTEMS: Chronic left knee pain and instability, otherwise negative. PAST SURGICAL HISTORY: Appendectomy, wisdom teeth, laparoscopic evaluation, low back surgery, salpingectomy, rotator cuff on the right x2, left breast lumpectomy, left rotator cuff repair, rectal abscess, D and C, right total knee arthroplasty. MEDICATIONS: 1. Prinivil 5 mg daily. 2. Claritin 10 mg daily. 3. Mobic 15 mg daily. 4. Vitamin D3 5000 units daily. 5. Aspirin 81 mg daily. 6. Clonazepam 0.5 mg 2 tablets as needed. 7. Soma 350 mg as needed. 8. Atorvastatin 10 mg daily. 9. Wellbutrin 150 mg twice daily. 10. Metoprolol 50 mg daily. ALLERGIES: INCLUDE DEMEROL. PHYSICAL EXAMINATION: GENERAL: Well-developed, well-nourished 69-year-old female in no acute distress. She is alert and oriented x3 and pleasant. HEENT: Normocephalic, atraumatic. Extraocular motions are intact. Pupils are equal and reactive to light. HEART: Regular rate and rhythm, no murmurs. LUNGS: Clear. ABDOMEN: Soft, nontender, bowel sounds present. EXTREMITIES: Left knee range of motion 0-135. Positive effusion. Medial joint line tenderness, varus deformity, 5/5 strength. Neurologically and neurovascularly intact. DIAGNOSES: Left knee end-stage osteoarthritis, hypertension, hypercholesterolemia, chronic obstructive pulmonary disease, abnormal bleeding, osteoarthritis, back problems, sciatica, dental caps, history of breast cancer. PLAN: The patient was advised of her diagnosis. Indications, risks, benefits, postop course have all been reviewed. The patient wishes to proceed with a left total knee arthroplasty. Necessary consent forms, preoperative testing and clearances will be obtained. NIRANJAN
[2020-03-23] MEDS ORDERED: ceFAZolin 2000MG 2,000 MG/15 ML SYR IV SCH (06:00)
[2020-03-23] MEDS ORDERED: ACETAMINOPHEN 500 MG TAB PO SCH (06:00)
[2020-03-23] MEDS ORDERED: ROPIVACAINE 0.5% HCL/PF 150 MG, BUPIVACAINE 0.5% MPF 30 ML, EPINEPHrine 30MG/30ML (OR U... INSTIL SCH (06:00)
[2020-03-23] MEDS ORDERED: dexAMETHasone 4 MG TAB PO SCH (06:00)
[2020-03-23] MEDS ORDERED: TRANEXAMIC ACID 1,000 MG **IV Intra-op IV SCH (06:00)
[2020-03-23] MEDS ORDERED: CeleBREX 200 MG CAP PO SCH (06:00)
[2020-03-23] MEDS ORDERED: LR 500ML BOLUS, THEN 15ML/HR IV SCH (06:00)
[2020-03-23] MEDS ORDERED: GABAPENTIN 300 MG CAP PO SCH (06:00)
[2020-03-23] MEDS ORDERED: METOCLOPRAMIDE HCL 10 MG TABLET PO SCH (06:00)
[2020-03-23] MEDS ORDERED: TRANEXAMIC ACID 1,000 MG **IV Pre-op IV SCH (06:00)
[2020-03-23] MEDS ORDERED: BUPIVACAINE/EPINEPHRINE 0.25% 1:200,000 30 ML VIAL ONE (06:24)
[2020-03-23] MEDS ORDERED: BUPIVACAINE 0.5 % 5 MG/1 ML PF 10ML VIAL ONE (06:24)
[2020-03-23] MEDS ORDERED: ORTHO JOINT ANESTHETIC ONE (06:44)
[2020-03-23] MEDS ORDERED: BACITRACIN INJ 50,000 UNIT VIAL ONE (06:44)
[2020-03-23] MEDS ORDERED: PROPOFOL IV EMULSION 10 MG/ML 20 ML VIAL IV ONE (06:45)
[2020-03-23] MEDS ORDERED: LIDOCAINE HCL 2% 2 ML VIAL/AMP(20MG/ML) INFIL ONE (06:45)
[2020-03-23] MEDS ORDERED: MIDAZOLAM HCL 1 MG/ML 2ML VIAL ONE ×2 (06:45→06:47)
[2020-03-23] MEDS ORDERED: ATROPINE SULFATE 0.1 MG/ML 10ML SYR IV PRN (06:48)
[2020-03-23] MEDS ORDERED: fentaNYL citrate 100 MCG/2 ML VIAL IV PRN (06:48)
[2020-03-23] MEDS ORDERED: HYDROmorphone INJ 2 MG/ML SYR/VIAL IV PRN (06:48)
[2020-03-23] MEDS ORDERED: ePHEDrine sulfate 50 MG/ML AMP IV PRN (06:48)
[2020-03-23] MEDS ORDERED: ONDANSETRON INJ 2 MG/ML 2 ML VIAL IV PRN ×2 (06:48→10:32)
--- NOTE | 2020-03-23 06:49 | History & Physical Bridge Note ---
Date of Service March 23, 2020 History & Physical Bridge Note I have examined the patient, reviewed the History & Physical and in the interval since the performance of the History & Physical I have noted the following changes of clinical significance: no changes noted
[2020-03-23] MEDS ORDERED: fentaNYL citrate 100 MCG/2 ML VIAL ONE (07:30)
--- NOTE | 2020-03-23 08:41 | Operative Report ---
Post Operative Report Pre & Post Diagnosis Operation Date: 03/23/20 07:00 Pre-Op Diagnosis: Unilateral Primary Osteoarhtritis, Left Knee Post-Op Diagnosis: Unilateral Primary Osteoarhtritis, Left Knee I identified the patient and participated in the time-out.: Yes Procedure Operation Date: 03/23/20 07:00 Actual Procedures p Left Total Knee Arthroplasty(Left) - Farrukh Shaffer MD Surgeon Farrukh Shaffer MD Manager Administration PHIL Campoverde Estimated Blood Loss 5 Findings Consistent with Post-Op Diagnosis Specimens Bone cuts Anesthesia Type MAC Spinal Regional Complications none Disposition Accompanied Patient To Recovery: No Disposition: Recovery Room Indications 69-year-old female with chronic progressive osteoarthritis her left knee. Patient's status post successful right knee replacement. Patient has end-stage osteoarthritis with [id number] both medial and lateral compartment subluxation the femur medial on the tibia. Description of Procedure Patient taken to the operating room placed supine on the operating table and anesthetized under spinal MAC regional anesthesia. Exam under anesthesia demonstrated 0 through 125 degrees range of motion moderate effusion no instability neutral alignment. A pneumatic tourniquet was placed about the thigh of the left lower extremity. The left lower extremity was prepped and draped in usual fashion. Leg was elevated exsanguinated with an Esmarch bandage and the pneumatic was raised to 300 but increased to 325 mm mercury due to bleeding not controlled at 300. An anterior incision was made across the left knee. The skin was incised longitudinally subcutaneous flaps were elevated and an incision was made through the medial retinaculum extending up into the mid third of the quadriceps tendon and extended down to the medial tibial tubercle. Intra-articular findings demonstrated end-stage osteoarthritis of the knee with [id number] both medial and lateral compartment more bone wear on the medial side. There were loose bodies posteriorly. Intact cruciate ligaments.. The knee was exposed by excising the infrapatellar fat pad, excising the meniscal remnants and anterior cruciate ligament and loose bodies. Any inflamed synovial tissue was resected. The fat pad over the anterior femur was resected for placement of the component in that area. The lateral synovial bands were relea se. Appropriate releases were performed to balance ligaments. The femur was exposed. The custom femoral cutting block was pinned in position. The distal femoral cutting block was applied. The distal femoral cut was made with the oscillating saw. The size 9, 4-in-1 cutting block was placed. The anterior and posterior chamfer cuts were made. The knee was extended and a subperiosteal peel lateral release was performed around the patella. The patella width was measured and width was reproduced using freehand cut technique. The 32 x 8.5 millimeter symmetrical patella was used. 3 drill holes are made for the pegs. The tibia was exposed. A custom tibial cutting block was positioned and drill holes were made for the cutting guide. Cutting guide was placed and the proximal cut was made with the oscillating saw. All osteophytes were resected. The lamina mattress and foundation sewer was used to assess ligamentous balance and the ligaments were balanced in extension and flexion. This required a medial and posterior medial release. The tibia was reexposed and measured for a size E tibial component. This was externally rotated in line with the tibial tubercle and the fixation pins were drilled. The proximal tibia was fashioned with the drill and punch. The size 9 CR femoral trial was inserted. The trial MC inserts were used. The 10 mm insert gave balanced ligaments through full range of motion. The patella tracked centrally. the trials were removed. The orthomix anesthetic cocktail was injected per protocol. The knee was then copiously irrigated with pulsatile lavage antibiotic solution with bacitracin. The final components were cemented with Simplex cement. The final components were size 9 standard CR left persona Biomet femoral component, E tibial component, 10 MC polyethylene, 32 x 8.5 symmetrical patella. When the cement cured with the knee in full extension then the Betadine soak was used per protocol. After the cement cured, the knee joint was copiously irrigated with antibiotic solution with bacitracin. 2 drains were brought out laterally and connected to a Hemovac. The quadriceps tendon and medial retinaculum were closed with interrupted [id number] #1 Vicryl sutures. The knee was taken through a full range of motion and repair was secure. The subcutaneous tissues were closed with 2-0 Vicryl sutures and skin was closed with jacklyn. Sterile dressings were applied and the patient tolerated the procedure well. Brijesh VILLARREAL my physician medical assistant float, assisted in soft tissue retraction instrument management leg positioning the closure and will participate in the postoperative care of the patient. I attest to the content of the Intraoperative Record and any orders documented therein. Any exceptions are noted below.
--- NOTE | 2020-03-23 09:52 | Anesthesiology Progress Note ---
Date of Service March 23, 2020 Anesthesia Post Procedure Vital Signs Vital Signs: Temp Pulse Pulse Resp BP Pulse Ox 03/23/20 09:40 74 14 141/73 H 94 03/23/20 09:30 74 14 148/72 H 94 03/23/20 09:20 76 15 137/82 92 03/23/20 09:10 36.3 C L 75 17 122/71 94 03/23/20 06:22 36.5 C 59 L 18 135/88 91 03/23/20 05:55 36.5 C 65 18 134/78 94 Transfer of Care Handoff Completed per policy Notes Mental Status: alert / awake / arousable and participated in evaluation Patient Amnestic to Procedure: Yes Nausea / Vomiting: adequately controlled Pain: adequately controlled Airway Patency, RR, SpO2: stable & adequate BP & HR: stable & adequate Hydration State: stable & adequate Anesthetic Complications: no major complications apparent and Pt Satisfied with anesthetic care
--- NOTE | 2020-03-23 09:55 | XRay Report ---
LEFT KNEE 2 VIEWS History: Left total knee arthroplasty. Degenerative arthritis. Postop. FINDINGS: The patient is status post a left total knee arthroplasty. The hardware is intact. No fract ure or dislocation. Skin jacklyn and surgical drains are in place. IMPRESSION: Left total knee arthroplasty. No evidence for hardware complication. ACT 112: Negative or not required by law. Electronically signed by: Marcello Mcdonald M.D. 03/23/2020 9:54 AM
[2020-03-23] MEDS ORDERED: CARISOPRODOL 350 MG TABLET PO PRN (10:32)
[2020-03-23] MEDS ORDERED: diphenhydrAMINE Capsule 25 MG CAP PO PRN (10:32)
[2020-03-23] MEDS ORDERED: SODIUM CHLORIDE 0.9% 1000ML 1,000 ML IV SCH (10:32)
[2020-03-23] MEDS ORDERED: bisacodyL 10 MG SUPP PR PRN (10:32)
[2020-03-23] MEDS ORDERED: MAGNESIUM HYDROXIDE SUSP 30 ML UDC PO PRN (10:32)
[2020-03-23] MEDS ORDERED: oxyCODONE HCL IR 5 MG TAB (IMMEDIATE RELEASE) PO PRN (10:32)
[2020-03-23] MEDS ORDERED: NALOXONE HCL 0.4 MG/1 ML VIAL/CARP IV PRN (10:32)
[2020-03-23] MEDS ORDERED: HYDROmorphone INJ 0.5 MG/0.5 ML SYR IV PRN (10:32)
[2020-03-23] MEDS: ACETAMINOPHEN 500 MG TAB PO SCH ×2 (13:55→22:08)
[2020-03-23] MEDS: ceFAZolin 1000MG 1,000 MG/7.5 ML SYR IV SCH ×2 (13:55→22:08)
--- NOTE | 2020-03-23 15:02 | Hospitalist Consultation ---
Date of Consultation March 23, 2020 Assessment & Plan (1) Post-operative state: s/p left TKA monitor for acute blood loss - cbc am Pain control, dvt proph per primary (2) HTN (hypertension): hold lisinopril for tomorrow morning until labs result to avoid kidney injury, metoprolol (3) HLD (hyperlipidemia): Continue home statin (4) Anxiety: Continue bupropion, clonazepam Supervising Physician Co-Signing Physician Notes Patient seen and examined with Ashley MARIE. I agree with their exam findings, review of systems, assessment and plan. I personally reviewed the chart. patient doing well, pain is reasonably controlled, no acute issues - s/p TKA: management per ortho - HTN: BP stable, continue home regimen, check BMP in the morning if labs and vitals stable on 03/24 and no acute issues, will plan to sign off History of Present Illness Attending Physician: Farrukh Shaffer MD History of Present Illness Ms. Peguero is post knee replacement today. She is feeling well and has no complaints. Pmhx: htn, hld, anxiety, breast ca Social: quit smoking a year ago, works in [employer] at [employer], lives with her cats Family: father of stroke, mother of [place] Allergies Allergy/AdvReac Type Severity Reaction Status Date / Time meperidine AdvReac Intermediate cold/clammy Verified 03/23/20 05:50 feeting after IM injection Home Medications Home Medications Medication Instructions Recorded Confirmed Type atorvastatin [Lipitor] 10 mg PO QAM 02/19/19 03/23/20 History bupropion HCl [Wellbutrin SR] 150 mg PO BID 02/19/19 03/23/20 History cholecalciferol (vitamin D3) 5,000 unit PO QAM 02/19/19 03/23/20 History [Vitamin D3] clonazepam [Klonopin] 0.5 mg PO QPM 02/19/19 03/23/20 History lisinopril 5 mg PO QPM 02/19/19 03/23/20 History loratadine [Claritin] 10 mg PO QAM 02/19/19 03/23/20 History acetaminophen [Tylenol Extra 500 mg PO Q6H PRN 02/18/20 03/23/20 History Strength] amoxicillin 500 mg PO UD PRN 02/18/20 03/23/20 History aspirin [Aspir-81] 81 mg PO PM 02/18/20 03/23/20 History carisoprodol [Soma] 350 mg PO BID PRN 02/18/20 03/23/20 History meloxicam 15 mg PO QAM 02/18/20 03/23/20 History metoprolol tartrate 75 mg PO DAILY 03/21/20 03/23/20 History Patient History Medical History Degenerative disc disease History of depression Stable and controlled History of left breast cancer s/p left breast lumpectomy with node excision s/p XRT (2011) Hyperlipidemia Hypertension IBS (irritable bowel syndrome) diet controlled Restless leg syndrome Sciatica Scoliosis Surgical History History of appendectomy History of colonoscopy History of dilation and curettage History of lumbar discectomy X2 History of lumpectomy of left breast + AXILLARY LND History of repair of rotator cuff ARTHROSCOPY - R X2, L X 1 History of right knee joint replacement 03/25/19 [facility] History of surgery FOR RECTAL ABCESS History of wisdom tooth extraction Hx of laparoscopy LAPAROSCOPIC RIGHT SALPINGECTOMY Family History Other No family history of adverse response to anesthesia Social History Smoking Status: Former smoker Cigarettes Per Day: 40; Smoking End Date: quit december 2018; Second Hand Exposure: Yes (as a child); Do You Dip or Chew Tobacco: No; Tobacco Cessation Education Requested by Patient: No Hx Alcohol Use: Yes Hx Substance Use: No Preferred Language: Setswana Communication Ability: Effective Critical Care Nurse Required: No Beliefs That Will Affect Care: Holiness Holiness Beliefs: MICHAEL Current Living Situation: Alone Feels Safe at Home: Yes Safety Concerns: Feels Safe At This Time Assistive Devices: Walker Assistive Devices Comment: caps, perm bridge Review of Systems Constitutional: no fever, no chills and no body aches Respiratory: no cough and no dyspnea Cardiovascular: no chest pain and no palpitations Gastrointestinal: no abdominal pain, no nausea and no vomiting Genitourinary: no dysuria and no urinary hesitancy Musculoskeletal: no back pain and no joint pain Integumentary: no rash Physical Exam Physical Exam: General: no distress Eyes: normal inspection, PERLL Respiratory: chest non tender, clear to auscultation, normal breath sounds, no respiratory distress, no accessory muscle use Cardiac: regular rate and rhythm, no rub or gallop, no murmur, no edema, no jvd GI/: active bowel sounds, no abd pain or tenderness, soft, non distended Extremities: normal range of motion, normal strength, non tender Neuro/Psych: alert and oriented x 3, normal mood and affect Skin: normal color, dry Results & Data Results & Data ([facility]) Vital Signs (Past 12 Hours) Vital Signs Temp Pulse Pulse Pulse Resp BP Pulse Ox 03/23/20 13:23 36.4 C L 73 18 128/77 96 03/23/20 12:15 36.4 C L 75 16 149/79 H 95 03/23/20 11:20 70 16 135/81 99 03/23/20 10:47 71 16 136/78 97 03/23/20 10:15 36.5 C 76 16 130/80 97 03/23/20 10:00 74 14 136/77 94 03/23/20 09:50 37.1 C 75 14 141/78 H 93 03/23/20 09:40 74 14 141/73 H 94 03/23/20 09:30 74 14 148/72 H 94 03/23/20 09:20 76 15 137/82 92 03/23/20 09:10 36.3 C L 75 17 122/71 94 03/23/20 06:22 36.5 C 59 L 18 135/88 91 03/23/20 05:55 36.5 C 65 18 134/78 94 PG Care Time/CCT Total # of Minutes Spent Total Time Spent with Patient: Total time spent is greater than 50% in coordination of care (as documented) at patient's floor/unit and/or counseling patient: Coding Level of Care Code 76712 Inpt Consult Level 4 Diagnoses Post-operative state Z98.890 HTN (hypertension) I10 HLD (hyperlipidemia) E78.5 Anxiety F41.9
[2020-03-23] MEDS: buPROPion SR 150 MG TABCR PO SCH (20:06)
[2020-03-23] MEDS: DOCUSATE SODIUM 100 MG CAP PO SCH (20:06)
[2020-03-23] MEDS: ASPIRIN 81 MG ECTAB PO SCH (20:07)
[2020-03-23] MEDS: CeleBREX 200 MG CAP PO SCH (20:10)
[2020-03-23] MEDS ORDERED: clonazePAM 0.5 MG TAB PO SCH (21:00)
[2020-03-23] MEDS ORDERED: SENNA 8.6 MG TAB PO SCH (21:00)
[2020-03-23] MEDS ORDERED: lisinopriL 5 MG TAB PO SCH (21:00)
[2020-03-24] MEDS: ACETAMINOPHEN 500 MG TAB PO SCH ×2 (05:33→14:03)
[2020-03-24 06:30] LABS: Hemoglobin 12.7 g/dL (12.0-16.0); Mean Corpuscular Hemoglobin 30.6 pg (25-34); Mean Corpuscular Hgb Conc 32.6 g/dL (32-36); Mean Platelet Volume 9.3 fL (7.4-10.4); Platelet Count 266 K/uL (130-400); RDW Coefficient of Variation 13.7 % (11.5-14.5); RDW Standard Deviation 47.1 fL (36.4-46.3); Red Blood Count 4.15 M/uL (4.2-5.4)
[2020-03-24 07:02] LABS: BUN Creatinine Ratio 20.2 (10-20); Calcium 10.1 mg/dl (8.5-10.1); Creatinine Clr Calc Pharmacy 37.5 ml/min; Est GFR (Non-African American) 49.2; Potassium 4.1 mmol/L (3.5-5.1)
--- NOTE | 2020-03-24 08:40 | Orthopedic Progress Note ---
Date of Service March 24, 2020 Assessment & Plan (1) Arthritis of left knee: POD #1, Left TKA PT/ OT DVT proph- ASA, TEDS D/C planning- Home with [facility] today- HH to D/C drain and dressings tomorrow. As per medicine Admission and Anticipated Discharge Date Admission Date: March 23, 2020 Subjective POD #1, Doing very well. Denies SOB, CP, N/V, Dizziness. Pain controlled well. Has been ambulating well. Wishes [facility] on D/C. Physical Exam Physical Exam: Patient seen in room she was ambulating well around the room. Left knee dressings c/d/i, no drainage. Toes/ ankle mobile. No calf tenderness. A&Ox3. VSS Results & Data ([facility]) Vital Signs (Past 12 Hours) Vital Signs Temp Pulse Resp BP Pulse Ox 03/24/20 07:04 36.8 C 75 18 155/78 H 94 03/24/20 02:35 36.7 C 79 16 114/61 94 03/23/20 23:25 36.6 C 76 16 113/62 96 03/23/20 20:48 36.4 C L 72 16 125/64 94
[2020-03-24] MEDS: buPROPion SR 150 MG TABCR PO SCH (08:59)
[2020-03-24] MEDS ORDERED: MULTIVITAMIN TAB PO SCH (09:00)
[2020-03-24] MEDS: ASPIRIN 81 MG ECTAB PO SCH (09:00)
[2020-03-24] MEDS: DOCUSATE SODIUM 100 MG CAP PO SCH (09:00)
[2020-03-24] MEDS: CeleBREX 200 MG CAP PO SCH (09:00)
[2020-03-24] MEDS ORDERED: CHOLECALCIFEROL 1,000 UNITS 25 MCG TAB PO SCH (09:00)
[2020-03-24] MEDS ORDERED: METOPROLOL TARTRATE 25 MG TAB PO SCH (09:00)
[2020-03-24] MEDS ORDERED: LORATADINE 10 MG TAB PO SCH (09:00)
[2020-03-24] MEDS ORDERED: ATORVASTATIN 10 MG TAB PO SCH (09:00)
== END 2020-03-24 15:24 | disposition home health service (06) ==
LOC: 3E 05:13 → ASU 05:13